=== PATIENT | male | born 1980 | race Caucasian/White ===

== ENCOUNTER 2019-07-03 20:12 | Emergency (ER) | payer BC, SELFPAY ==
--- NOTE | 2019-07-03 20:54 | RAD REPORT ---
EXAM DESCRIPTION: CT - CTHCSPWOC - 07/03/2019 8:44 pm CLINICAL HISTORY: Trauma, head and neck injury. Mental status change;Pain COMPARISON: No comparisons TECHNIQUE: Axial 5 mm thick images of the head were obtained. Axial 2 mm thick images of the cervical spine were obtained with sagittal and coronal reconstruction images generated and reviewed. All CT scans are performed using dose optimization technique as appropriate and may include automated exposure control or mA/KV adjustment according to patient size. FINDINGS: CT HEAD WITHOUT CONTRAST: No acute hemorrhage, hydrocephalus or extra-axial collection is identified.No areas of brain edema or midline shift. The paranasal sinuses and mastoids are clear.The calvarium is intact. CT CERVICAL SPINE WITHOUT CONTRAST: No fracture or subluxation.No prevertebral soft tissues swelling is identified. IMPRESSION: No acute intracranial or cervical spine findings.
[2019-07-03 21:03] LABS: Absolute Lymphocytes (CBC) 2.5 K/uL (0.7-4.9)
[2019-07-03 21:08] LABS: Basophils % 0.5 % (0-1.3); Hematocrit 45.7 % (39.6-49.0); Lymphocytes % 23.7 % (15.3-44.8); MPV 9.2 fL (7.6-11.3)
[2019-07-03 21:09] LABS: Protime INR 1.03
[2019-07-03] MEDS ORDERED: THIAMINE 200 MG/2 ML INJ ONE (21:10)
[2019-07-03] MEDS ORDERED: NA CHLORIDE 0.9% 1,000 ML ONE ×2 (21:11→23:08)
[2019-07-03] MEDS ORDERED: FAMOTIDINE 20 MG/2 ML VIAL IV ONE (21:11)
[2019-07-03] MEDS ORDERED: FOLIC ACID 5 MG/ML VIAL ONE (21:11)
[2019-07-03 21:20] LABS: Urine Blood NEGATIVE (NEG); Urine Glucose NEGATIVE (NEG); Urine Protein NEGATIVE (NEG); Urine Specific Gravity <1.005 (1.005-1.030)
--- NOTE | 2019-07-03 21:21 | RAD REPORT ---
EXAM DESCRIPTION: RAD - Chest Single View - 07/03/2019 9:12 pm CLINICAL HISTORY: CHEST PAIN Chest pain. COMPARISON: CHEST SINGLE VIEW dated 04/17/2015 FINDINGS: Portable technique limits examination quality. The lungs are grossly clear. The heart is normal in size. No displaced fractures. IMPRESSION: No acute intrathoracic process suspected.
[2019-07-03 21:22] LABS: ALT/SGPT 25 U/L (12-78); AST/SGOT 21 U/L (15-37); Albumin 4.5 g/dL (3.4-5.0); Alkaline Phosphatase 97 U/L (45-117); BUN Blood Urea Nitrogen 15 mg/dL (7-18); Bicarbonate 20 mmol/L (21-32); Bilirubin Direct 0.2 mg/dL (0-0.2); Bilirubin Total 0.6 mg/dL (0.2-1.0); Glucose Level 80 mg/dL (74-106); Magnesium 2.1 mg/dL (1.8-2.4); NT PRO-BNP 5 pg/mL (<125); Potassium 3.6 mmol/L (3.5-5.1); Protein, Total 8.1 g/dL (6.4-8.2); Sodium Level 137 mmol/L (136-145); Troponin (Emerg Dept Use Only) < 0.02 ng/mL (0.0-0.045)
[2019-07-03 21:27] LABS: Barbiturates NEGATIVE (NEGATIVE); Benzodiazepines NEGATIVE (NEGATIVE); Cocaine NEGATIVE (NEGATIVE); METHAMPHETAM NEGATIVE (NEGATIVE); Methadone NEGATIVE (NEGATIVE); Opiates NEGATIVE (NEGATIVE); Phencyclidine NEGATIVE (NEGATIVE); THC Cannibis NEGATIVE (NEGATIVE)
[2019-07-03 21:47] LABS: Blood Morphology Comment NOT SEEN (NOT SEEN); Platelet Estimate ADEQ
--- NOTE | 2019-07-03 22:05 | RAD REPORT ---
EXAM DESCRIPTION: CT - Angio Aorta For Dissection - 07/03/2019 9:50 pm CLINICAL HISTORY: Chest pain radiating to the back. COUGH COMPARISON: No comparisons TECHNIQUE: CT angiography of the aorta was performed with MIPs. All CT scans are performed using dose optimization technique as appropriate and may include automated exposure control or mA/KV adjustment according to patient size. FINDINGS: A left aortic arch is present with normal branching pattern of the great vessels.No acute aortic finding is seen such as aneurysm, penetrating ulcer or dissection. The celiac axis, SMA, MAYO and renal arteries are patent. No evidence of pulmonary embolism. Vague nodular densities are present in both lungs greatest in the upper lobes. No aggressive mass see n. The liver demonstrates no focal mass or biliary dilatation.The spleen, pancreas, adrenal glands and k idneys are within normal limits for arterial phase imaging. No bowel obstruction, free fluid or abscess.Appendectomy.No pathologic enlarged lymphadenopathy ident ified. No fracture or worrisome bone lesion seen. IMPRESSION: No acute aortic finding is demonstrated. Vague nodular densities in lungs may indicate mild pulmonary infection. Consider follow-up CT chest i n 3-6 months for surveillance purposes.
--- NOTE | 2019-07-03 22:07 | ER ---
Nurse's Notes [facility] Name: Angel Alvares Age: 38 yrs Sex: Male : 1980 Arrival Date: 07/03/2019 Time: 20:17 Bed 4 Private MD: Diagnosis: Cerebral infarction-left arm and leg weakness;Alcohol abuse with intoxication Presentation: 07/02 20:30 Chief complaint: Patient states: Reports having numbness and tingling that started ea about an hour ago, states he was jumping on the trampoline and started feeling a lot of tingling on the left arm and left leg. Pt denies injury. Coronavirus screen: Proceed with normal triage. Ebola Screen: No symptoms or risks identified at this time. Initial Sepsis Screen: Does the patient meet any 2 criteria? No. Patient's initial sepsis screen is negative. Does the patient have a suspected source of infection? No. Patient's initial sepsis screen is negative. Risk Assessment: Do you want to hurt yourself or someone else? Patient reports no desire to harm self or others. Onset of symptoms was July 03, 2019. 20:30 Method Of Arrival: Wheelchair ea 20:30 Acuity: GENA 3 ea Historical: - Home Meds: 21:36 None [Active]; ea - PMHx: 21:36 Asthma; ea - PSHx: 21:36 Appendectomy; ea - Immunization history:: Adult Immunizations up to date. - Family history:: not pertinent. - Social history:: Smoking status: unknown. Screenin:02 Abuse screen: Denies threats or abuse. Nutritional screening: No deficits noted. ea Tuberculosis screening: No symptoms or risk factors identified. Fall Risk IV access (20 points). Assessment: 20:30 General: Appears in no apparent distress. Behavior is appropriate for age, Smells of ea alcohol. Pain: Denies pain. Neuro: Level of Consciousness is awake, alert, Oriented to person, place, time, situation, Weakness arm(s) leg(s) Speech is normal, Facial droop on left, Pupils are PERRLA, Pt appears intoxicated, smells of ETOH, having a hard time following commands.. Cardiovascular: Patient's skin is warm and dry. Respiratory: Airway is patent Respiratory effort is even, unlabored, Respiratory pattern is regular, symmetrical. GI: Abdomen is non-distended. Derm: Skin is pink, warm \T\ dry. 21:20 Reassessment: Patient and/or family updated on plan of care and expected duration. Pain ea level reassessed. Pt awake, alert. Oriented x 3. Respirations even and unlabored. Chest expansions even and symmetrical. Denies pain at this time. 22:50 Reassessment: Patient and/or family updated on plan of care and expected duration. Pain ea level reassessed. Patient is alert, oriented x 3, equal unlabored respirations, skin warm/dry/pink. Patient states symptoms have improved. 07/03 00:29 Reassessment: Patient and/or family updated on plan of care and expected duration. Pain ea level reassessed. Patient is alert, oriented x 3, equal unlabored respirations, skin warm/dry/pink. [facility] at facility for transfer, report given to EMS. Pt left via stretcher per EMS, tolerating well. Vital Signs: 07/02 20:30 BP 132 / 89; Pulse 96; Resp 18; Pulse Ox 98% ; Weight 81.65 kg; Height 6 ft. (182.88 ea cm); 22:25 BP 135 / 91; Pulse 99; Resp 18; Temp 98; Pulse Ox 99% on R/A; ea 23:10 BP 120 / 78; Pulse 99; Resp 18; Pulse Ox 99% ; ea 07/03 00:10 BP 122 / 72; Pulse 97; Resp 18; Pulse Ox 99% ; ea 07/02 20:30 Body Mass Index 24.41 (81.65 kg, 182.88 cm) ea NIH Stroke Scale Scores: 07/02 20:35 NIHSS Score: 7 ea 20:42 NIHSS Score: 7 torri ED Course: 20:17 Patient arrived in ED. ds1 20:17 Girish Corona MD is Attending Physician. torri 20:30 Patient has correct armband on for positive identification. Placed in gown. Bed in low ea position. Call light in reach. Side rails up X2. care asst on. Pulse ox on. NIBP on. 20:30 Arm band placed on right wrist. Patient placed in an exam room, on a stretcher, on ea pulse oximetry. 20:44 Head C Spine Mpr Wo Con In Process Unspecified. EDMS 20:50 Wong, Jovanna, RN is Primary Nurse. ea 20:50 Inserted saline lock: 20 gauge in left antecubital area, using aseptic technique. dh4 21:12 XRAY Chest (1 view) In Process Unspecified. EDMS 21:32 Triage completed. ea 21:59 CT Aorta for Dissection In Process Unspecified. EDMS 22:[address] [facility] spoke with Kacey Saldaña. mw2 22:16 Dr. Rothman accepted pt. mw2 22:29 Kacey Saldaña called back with acceptance to [facility]. mw2 22:41 US Carotid Artery Bilateral In Process Unspecified. EDMS 22:50 CT Head Angio In Process Unspecified. EDMS 04 00:20 No provider procedures requiring assistance completed. Patient transferred, IV remains ea in place. Administered Medications: 07/02 21:08 Drug: NS 0.9% 1000 ml Route: IV; Rate: 1 bolus; Site: left antecubital; ea 21:08 Drug: Thiamine 100 mg Route: IV; Rate: bolus; Site: left antecubital; ea 21:08 Drug: foLIC Acid 1 mg Route: IVPB; Site: left antecubital; ea 21:08 Drug: Pepcid 20 mg Route: IVP; Site: left antecubital; ea 22:00 Follow up: Response: No adverse reaction ea 22:25 Drug: ACTIvase {Co-Signature: vc (Crystal Espinoza RN).} Route: IV Thrombolytics; Rate: ea calculated rate; Infused Over: 60 mins; 23:30 Follow up: Response: No adverse reaction ea 23:05 Drug: NS 0.9% 1000 ml Route: IV; Rate: 1 bolus; Site: right forearm; ea 23:05 Drug: Mucomyst - Acetylcysteine 600 mg Route: PO; ea 07/03 00:00 Follow up: Response: No adverse reaction ea 07/02 23:46 Drug: NS 0.9% 1000 ml Route: IV; Rate: 125 ml/hr; Site: right forearm; ea Outcome: 22:06 ER care complete, transfer ordered by . torri 22:15 Instructed on the need for transfer. ea 07/03 00:20 Transferred by ground EMS to [facility], Transfer form completed. ea 00:29 Condition: stable ea 00:34 Patient left the ED. vc NIH Stroke Scale - NIH Stroke Score Date: 07/03/2019 Time: 20:35 Total Score = 7 1a. Level of Consciousness (LOC) - 0(Alert) 1b. Level of Consciousness (LOC) (Year \T\ Age) - 0(Both) 1c. LOC Commands (Open \T\ Closes Eyes/Business Systems Advisor) - 0(Both) 2. Best Gaze (Lateral Gaze Paresis) - 0(Normal) 3. Visual Field Loss - 0(No visual loss) 4. Facial Palsy - 1(Minor Paralysis) 5a. Left Arm: Motor (10-second hold) - 2(Drift, some effort against gravity) 5b. Right Arm: Motor (10-second hold) - 0(No drift) 6a. Left Leg: Motor (5-second hold - always test supine) - 2(Drift, some effort against gravity) 6b. Right Leg: Motor (5-second hold - always test supine) - 0(No drift) 7. Limb Ataxia (finger/nose \T\ heel/comer - test with eyes open) - 1(Present in one limb) 8. Sensory Loss (pinprick arms/legs/face) - 1(Mild to moderate loss) 9. Best Language: Aphasia (description/naming/reading) - 0(No aphasia) 10. Dysarthria (speech clarity - read or repeat words) - 0(Normal) 11. Extinction and Inattention (visual/tactile/auditory/spatial/personal) - 0(No abnormality) Initials: [facility] Stroke Scale - NIH Stroke Score Date: 07/03/2019 Time: 20:42 Total Score = 7 1a. Level of Consciousness (LOC) - 0(Alert) 1b. Level of Consciousness (LOC) (Year \T\ Age) - 0(Both) 1c. LOC Commands (Open \T\ Closes Eyes/Business Systems Advisor) - 0(Both) 2. Best Gaze (Lateral Gaze Paresis) - 0(Normal) 3. Visual Field Loss - 0(No visual loss) 4. Facial Palsy - 0(Normal) 5a. Left Arm: Motor (10-second hold) - 3(No effort against gravity) 5b. Right Arm: Motor (10-second hold) - 0(No drift) 6a. Left Leg: Motor (5-second hold - always test supine) - 3(No effort against gravity) 6b. Right Leg: Motor (5-second hold - always test supine) - 0(No drift) 7. Limb Ataxia (finger/nose \T\ heel/comer - test with eyes open) - 0(Absent) 8. Sensory Loss (pinprick arms/legs/face) - 1(Mild to moderate loss) 9. Best Language: Aphasia (description/naming/reading) - 0(No aphasia) 10. Dysarthria (speech clarity - read or repeat words) - 0(Normal) 11. Extinction and Inattention (visual/tactile/auditory/spatial/personal) - 0(No abnormality) Initials: torri Signatures: Dispatcher [employer] EDKS Girish Corona MD MD cha Sanford, Demi ds1 Jovanna Wong RN RN ea [place]brook, MyKena mw2 Crystal Espinoza RN RN vc Huhn, Donald [facility] Crystal Espinoza RN, vc Corrections: (The following items were deleted from the chart) 07/02 22:48 22:08 initiated transfer at [facility] spoke with Kacey Saldaña mw2 mw2
--- NOTE | 2019-07-03 22:07 | EDPHYS ---
Physician Documentation [facility] Name: Angel Alvares Age: 38 yrs Sex: Male : 1980 Arrival Date: 07/03/2019 Time: 20:17 Bed 4 Private MD: Girish Herring HPI: 07/02 20:42 This 38 yrs old Male presents to ER via Unassigned with complaints of L Side torri Numbness, Abdominal Pain. 20:42 The patient presents with abdominal pain. Onset: The symptoms/episode began/occurred 1 torri hour(s) ago. The patient's problem is reported as paresthesias, in left upper extremity, in left lower extremity, weakness, in the left upper extremity, in the left lower extremity. Onset: The symptoms/episode began/occurred 1 hour(s) ago. Duration: The episode is continuous. The symptoms are alleviated by nothing. The symptoms are aggravated by nothing. . Historical: - Home Meds: 21:36 None [Active]; ea - PMHx: 21:36 Asthma; ea - PSHx: 21:36 Appendectomy; ea - Immunization history:: Adult Immunizations up to date. - Family history:: not pertinent. - Social history:: Smoking status: unknown. ROS: 20:42 Constitutional: Negative for fever, chills, and weight loss, Eyes: Negative for injury, torri pain, redness, and discharge, ENT: Negative for injury, pain, and discharge, Neck: Negative for injury, pain, and swelling, Cardiovascular: Negative for chest pain, palpitations, and edema, Respiratory: Negative for shortness of breath, cough, wheezing, and pleuritic chest pain, Back: Negative for injury and pain, : Negative for injury, bleeding, discharge, and swelling, MS/Extremity: Negative for injury and deformity, Skin: Negative for injury, rash, and discoloration, Psych: Negative for depression, anxiety, suicide ideation, homicidal ideation, and hallucinations, Allergy/Immunology: Negative for hives, rash, and allergies, Endocrine: Negative for neck swelling, polydipsia, polyuria, polyphagia, and marked weight changes, Hematologic/Lymphatic: Negative for swollen nodes, abnormal bleeding, and unusual bruising. 20:42 Abdomen/GI: Positive for abdominal pain. 20:42 Neuro: Positive for numbness, weakness, of the left arm and left leg. Exam: 20:42 Constitutional: This is a well developed, well nourished patient who is awake, alert, torri and in no acute distress. Head/Face: Normocephalic, atraumatic. Eyes: Pupils equal round and reactive to light, extra-ocular motions intact. Lids and lashes normal. Conjunctiva and sclera are non-icteric and not injected. Cornea within normal limits. Periorbital areas with no swelling, redness, or edema. ENT: Nares patent. No nasal discharge, no septal abnormalities noted. Tympanic membranes are normal and external auditory canals are clear. Oropharynx with no redness, swelling, or masses, exudates, or evidence of obstruction, uvula midline. Mucous membranes moist. Neck: Trachea midline, no thyromegaly or masses palpated, and no cervical lymphadenopathy. Supple, full range of motion without nuchal rigidity, or vertebral point tenderness. No Meningismus. Chest/axilla: Normal chest wall appearance and motion. Nontender with no deformity. No lesions are appreciated. Cardiovascular: Regular rate and rhythm with a normal S1 and S2. No gallops, murmurs, or rubs. Normal PMI, no JVD. No pulse deficits. Respiratory: Lungs have equal breath sounds bilaterally, clear to auscultation and percussion. No rales, rhonchi or wheezes noted. No increased work of breathing, no retractions or nasal flaring. Abdomen/GI: Soft, non-tender, with normal bowel sounds. No distension or tympany. No guarding or rebound. No evidence of tenderness throughout. Back: No spinal tenderness. No costovertebral tenderness. Full range of motion. Male : Normal genitalia with no discharge or lesions. Skin: Warm, dry with normal turgor. Normal color with no rashes, no lesions, and no evidence of cellulitis. Psych: Awake, alert, with orientation to person, place and time. Behavior, mood, and affect are within normal limits. 20:42 Musculoskeletal/extremity: Circulation is intact in all extremities. the left arm and left leg numbness, Compartment Syndrome exam of affected extremity: is normal. DVT Exam: No signs of deep vein thrombosis. no pain, no swelling, no tenderness, negative Homans' sign noted on exam, no appreciated bluish discoloration, no erythema, no increased warmth. 22:02 Radiologist reports: neg. torri Vital Signs: 20:30 BP 132 / 89; Pulse 96; Resp 18; Pulse Ox 98% ; Weight 81.65 kg; Height 6 ft. (182.88 ea cm); 22:25 BP 135 / 91; Pulse 99; Resp 18; Temp 98; Pulse Ox 99% on R/A; ea 23:10 BP 120 / 78; Pulse 99; Resp 18; Pulse Ox 99% ; ea 07/03 00:10 BP 122 / 72; Pulse 97; Resp 18; Pulse Ox 99% ; ea 07/02 20:30 Body Mass Index 24.41 (81.65 kg, 182.88 cm) ea NIH Stroke Scale Scores: 07/02 20:35 NIHSS Score: 7 ea 20:42 NIHSS Score: 7 torri MDM: 20:37 Patient medically screened. [facility] 20:46 Data reviewed: vital signs, nurses notes, lab test result(s), EKG, radiologic studies, [facility] CT scan, plain films. 07/02 20:32 Order name: Basic Metabolic Panel [facility] 07/02 20:32 Order name: CBC with Diff; Complete Time: 22:01 [facility] 07/02 20:32 Order name: LFT's; Complete Time: 22: [facility] 07/02 20:32 Order name: Magnesium; Complete Time: 22: [facility] 07/02 20:32 Order name: NT PRO-BNP; Complete Time: 22: [facility] 07/02 20:32 Order name: PT-INR; Complete Time: 21:26 [facility] 07/02 20:32 Order name: Troponin (emerg Dept Use Only); Complete Time: 22: [facility] 07/02 20:32 Order name: Acetaminophen; Complete Time: 22:01 [facility] 07/02 20:32 Order name: ETOH Level; Complete Time: 22:01 [facility] 07/02 20:32 Order name: Ptt, Activated; Complete Time: 21:26 [facility] 07/02 20:32 Order name: Salicylate; Complete Time: 22:01 [facility] 07/02 20:32 Order name: Urine Drug Screen; Complete Time: 22:01 [facility] 07/02 20:32 Order name: Basic Metabolic Panel; Complete Time: 22:01 EDMS 07/02 21:18 Order name: Urine Dipstick--Ancillary (enter results); Complete Time: 22:01 mw2 04/10 20:32 Order name: XRAY Chest (1 view); Complete Time: 22:01 [facility] 07/02 20:36 Order name: CT Aorta for Dissection; Complete Time: 22:16 [facility] 07/02 20:36 Order name: US Carotid Artery Bilateral [facility] 07/02 20:44 Order name: Head C Spine Mpr Wo Con; Complete Time: 21:26 EDFL 07/02 21:59 Order name: Manual Differential; Complete Time: 22:01 [facility] 07/02 22:22 Order name: CT Head [facility] 07/02 20:32 Order name: EKG; Complete Time: 20:33 [facility] 07/02 20:32 Order name: Cardiac monitoring; Complete Time: 21:14 [facility] 07/02 20:32 Order name: EKG - Nurse/Tech; Complete Time: 21:14 [facility] 07/02 20:32 Order name: IV Saline Lock; Complete Time: 21:14 [facility] 07/02 20:32 Order name: Labs collected and sent; Complete Time: 21:14 [facility] 07/02 20:32 Order name: O2 Per Protocol; Complete Time: 21:14 [facility] 07/02 20:32 Order name: O2 Sat Monitoring; Complete Time: 21:36 [facility] 07/02 20:32 Order name: Urine Dipstick-Ancillary (obtain specimen); Complete Time: 21:13 [facility] Administered Medications: 21:08 Drug: NS 0.9% 1000 ml Route: IV; Rate: 1 bolus; Site: left antecubital; ea 21:08 Drug: Thiamine 100 mg Route: IV; Rate: bolus; Site: left antecubital; ea 21:08 Drug: foLIC Acid 1 mg Route: IVPB; Site: left antecubital; ea 21:08 Drug: Pepcid 20 mg Route: IVP; Site: left antecubital; ea 22:00 Follow up: Response: No adverse reaction ea 22:25 Drug: ACTIvase {Co-Signature: vc (Crystal Espinoza RN).} Route: IV Thrombolytics; Rate: ea calculated rate; Infused Over: 60 mins; 23:30 Follow up: Response: No adverse reaction ea 23:05 Drug: NS 0.9% 1000 ml Route: IV; Rate: 1 bolus; Site: right forearm; ea 23:05 Drug: Mucomyst - Acetylcysteine 600 mg Route: PO; ea 07/03 00:00 Follow up: Response: No adverse reaction 07/02 23:46 Drug: NS 0.9% 1000 ml Route: IV; Rate: 125 ml/hr; Site: right forearm; ea Disposition: 07/03/19 22:[address] [facility]. Diagnosis are Cerebral infarction - left arm and leg weakness, Alcohol abuse with intoxication. - Reason for transfer: Higher level of care. - Accepting physician is to [facility], stroke team. - Condition is Fair. - Problem is new. - Symptoms have improved. NIH Stroke Scale - NIH Stroke Score Date: 07/03/2019 Time: 20:35 Total Score = 7 1a. Level of Consciousness (LOC) - 0(Alert) 1b. Level of Consciousness (LOC) (Year \T\ Age) - 0(Both) 1c. LOC Commands (Open \T\ Closes Eyes/Meat Inspector) - 0(Both) 2. Best Gaze (Lateral Gaze Paresis) - 0(Normal) 3. Visual Field Loss - 0(No visual loss) 4. Facial Palsy - 1(Minor Paralysis) 5a. Left Arm: Motor (10-second hold) - 2(Drift, some effort against gravity) 5b. Right Arm: Motor (10-second hold) - 0(No drift) 6a. Left Leg: Motor (5-second hold - always test supine) - 2(Drift, some effort against gravity) 6b. Right Leg: Motor (5-second hold - always test supine) - 0(No drift) 7. Limb Ataxia (finger/nose \T\ heel/comer - test with eyes open) - 1(Present in one limb) 8. Sensory Loss (pinprick arms/legs/face) - 1(Mild to moderate loss) 9. Best Language: Aphasia (description/naming/reading) - 0(No aphasia) 10. Dysarthria (speech clarity - read or repeat words) - 0(Normal) 11. Extinction and Inattention (visual/tactile/auditory/spatial/personal) - 0(No abnormality) Initials: jenaro NIH Stroke Scale - NIH Stroke Score Date: 07/03/2019 Time: 20:42 Total Score = 7 1a. Level of Consciousness (LOC) - 0(Alert) 1b. Level of Consciousness (LOC) (Year \T\ Age) - 0(Both) 1c. LOC Commands (Open \T\ Closes Eyes/Meat Inspector) - 0(Both) 2. Best Gaze (Lateral Gaze Paresis) - 0(Normal) 3. Visual Field Loss - 0(No visual loss) 4. Facial Palsy - 0(Normal) 5a. Left Arm: Motor (10-second hold) - 3(No effort against gravity) 5b. Right Arm: Motor (10-second hold) - 0(No drift) 6a. Left Leg: Motor (5-second hold - always test supine) - 3(No effort against gravity) 6b. Right Leg: Motor (5-second hold - always test supine) - 0(No drift) 7. Limb Ataxia (finger/nose \T\ heel/comer - test with eyes open) - 0(Absent) 8. Sensory Loss (pinprick arms/legs/face) - 1(Mild to moderate loss) 9. Best Language: Aphasia (description/naming/reading) - 0(No aphasia) 10. Dysarthria (speech clarity - read or repeat words) - 0(Normal) 11. Extinction and Inattention (visual/tactile/auditory/spatial/personal) - 0(No abnormality) Initials: [facility] Signatures: Dispatcher [employer] EDMS Girish Corona MD MD cha Antunez, Elena, RN RN ea Calcote, Vanessa, RN RN vc Vanessa Calcote RN vc Corrections: (The following items were deleted from the chart) 20:44 20:33 CT-STROKE BRAIN W/O CONTRAST+CT.RAD.BRZ ordered. EDFL EDFL 20:44 20:37 C Spine Wo Con+CT.RAD.BRZ ordered. EDFL EDFL 07/03 00:34 07/02 22:06 07/03/2019 22:06 Transfer ordered to [facility]. Diagnosis is Cerebral infarction - left arm and leg weakness; Alcohol abuse with intoxication. Reason for transfer: Higher level of care. Accepting physician is to [facility], stroke team. Condition is Fair. Problem is new. Symptoms have improved. torri
[2019-07-03] MEDS ORDERED: ALTEPLASE 100 ML IV ONE (22:12)
[2019-07-03] MEDS ORDERED: NA CHLORIDE 0.9% 100 ML IV ONE (22:41)
[2019-07-03] MEDS ORDERED: ACETYLCYST 6,000 MG/30 ML VIAL ONE (23:08)
[2019-07-04 00:53] VITALS: BP 132/89; O2SAT 98
--- NOTE | 2019-07-04 07:59 | EKG ---
Test Date: 2019-07-03 Test Time: 20:52:35 Vessel Ordinary Seaman: LIDIA MEASUREMENT RESULTS: Intervals: Rate: 94 ME: 196 QRSD: 112 QT: 378 QTc: 472 [place]aden: P: 65 ME: 196 QRS: 132 T: 57 INTERPRETIVE STATEMENTS: Normal sinus rhythm Right axis deviation Abnormal ECG Compared to ECG 04/17/2015 21:08:15 No significant changes Electronically Signed On 07-04-19 07:58:34 CDT by [place]
--- NOTE | 2019-07-04 10:42 | RAD REPORT ---
EXAM DESCRIPTION: CT - Head angio - 07/04/2019 4:25 am CLINICAL HISTORY: WEAKNESS COMPARISON: None Available. TECHNIQUE: Multiple helical axial tomographic images were obtained of the head following administrat ion of intravenous contrast per angiographic protocol. Coronal, sagittal, and MIP reformatted images were obtained. This exam was performed according to our departmental dose-optimization program, which includes automated exposure control, adjustment of the mA and/or kV according to patient size and/or use of iterative reconstruction technique. FINDINGS: Intracranial segments of the bilateral internal carotid arteries appear patent without sig nificant stenosis or occlusion. Bilateral anterior and middle cerebral arteries appear patent without significant stenosis or occlusion. Intracranial segments of the bilateral vertebral arteries, basila r artery, and posterior cerebral arteries appear patent without significant stenosis or occlusion. Ri ght vertebral artery appears to end as the PICA. No evidence of intracranial aneurysm. There is no acute intracranial hemorrhage. No mass. No midline shift. No ventriculomegaly. Addison-white matter differentiation is maintained. Mild paranasal sinus mucosal thickening is present. Mastoid air cells and middle ear spaces are clear . Orbits and orbital contents are unremarkable. Osseous structures are unremarkable. Surrounding soft tissues are unremarkable. IMPRESSION: No evidence of significant intracranial arterial stenosis or occlusion. Electronically signed by: Angel Sanitago MD 07/03/2019 11:19 PM CDT Due to temporary technical issues with the PACS/Fluency reporting system, reports are being signed by the in house radiologist as a courtesy to ensure prompt reporting. The interpreting radiologist is f ully responsible for the content of the report.
--- NOTE | 2019-07-04 10:50 | RAD REPORT ---
EXAM DESCRIPTION: US - CP - 07/03/2019 10:40 pm CLINICAL HISTORY: 38 years Male Declining state;Confused;Weakness COMPARISON: None TECHNIQUE: Real-time and Doppler sonography of the carotid arteries was performed bilaterally. FINDINGS: No significant plaque formation bilaterally. Doppler spectrum analysis was performed which revealed peak systolic velocity ratios of 1.1 on the ri ght and 1.2 on the left. Antegrade flow is seen involving the vertebral arteries bilaterally. Velocit y elevation proximal internal carotid arteries bilaterally. IMPRESSION: No significant plaque formation bilaterally. No hemodynamically significant or greater than 50% narrowing involving the carotid arteries bilateral ly. Electronically signed by: Nancy aBteman MD 07/03/2019 11:41 PM CDT Due to temporary technical issues with the PACS/Fluency reporting system, reports are being signed by the in house radiologist as a courtesy to ensure prompt reporting. The interpreting radiologist is f ully responsible for the content of the report.
== END 2019-07-04 00:34 | disposition short-term general hospital (02) ==
LOC: ER 20:12
DX: I63.9 Cerebral infarction, unspecified (principal); G81.94 Hemiplegia, unspecified affecting left nondominant side; R29.707 NIHSS score 7; F10.129 Alcohol abuse with intoxication, unspecified; Y90.7 Blood alcohol level of 200-239 mg/100 ml; R94.31 Abnormal electrocardiogram [ECG] [EKG]; R91.1 Solitary pulmonary nodule
CPT/HCPCS: 36415; 70450; 70496; 71045; 71275; 72125; 74175; 80048; 80076; 80307; 80320; 80329; 81003; 83735; 83880; 84484; 85025; 85610; 85730; 92977; 93005; 93880; 96374; 96375; 99285; J2997; J3411; J7030; Q9967

== ENCOUNTER 2023-12-23 16:10 | Inpatient (IN) | payer SELFPAY ==
--- OUTSIDE RECORDS SUMMARY | 2023-12-23 16:13 | XMS REPORT | Clinical Summary ---
Author Name Unknown Organization [facility] Address [address] [place] [address] Care Team Providers Care Accounting Methods Analyst Name Role Phone Kia Hollingsworth APRN Primary Care Provider [phone] Allergies No known active allergies Medications Medication Sig Dispensed Refills Start Date End Date Status albuterol (VENTOLIN HFA,PROAIR HFA) 90 mcg/puff inhaler 08/30/2022 Active testosterone cypionate 200 mg/mL kit 0.5 ml Intramuscular every week for 90 days 09/12/2021 Active Active Problems No known active problems Encounters Date Type Department Care Team Description 06/14/2023 1:40 PM CDT Clinical Support Undiagnosed Breast Clinic [address] [place] [address], 5th [place] [address] Kia Hollingsworth APRN 06/14/2023 10:18 AM CDT - 06/14/2023 11:59 PM CDT Hospital Encounter Breast Imaging [address] [facility], 5th [place] [address] Jared Nunez APRN Unspecified lump in unspecified breast Discharge Disposition: Home 06/14/2023 8:52 AM CDT - 06/14/2023 10:17 AM CDT Hospital Encounter Breast Imaging [address] [facility], 5th [place] [address] Jared Nunez APRN Unspecified lump in unspecified breast Discharge Disposition: Home 06/14/2023 8:00 AM CDT Office Visit Undiagnosed Breast Clinic [address] [facility], 5th [place] [address] Kia Hollingsworth APRN Unspecified lump in unspecified breast (Primary Dx); Mastodynia; Rash and other nonspecific skin eruption 06/14/2023 Travel 06/12/2023 2:00 PM CDT NPR [facility] PATIENT ACCESS Kia Hollingsworth APRN 06/07/2023 Orders Only Undiagnosed Breast Clinic [address] [facility], 5th [place] [address] NunezJared smith Bouchra Hernandez, [employer] Unspecified lump in unspecified breast (Primary Dx) 05/30/2023 Travel after 12/23/2022 Immunizations Name Administration Dates Next Due Pneumococcal Polysaccharide PPSV23 10/04/2005 Tdap 10/04/2005 Surgical History Surgery Date Site/Laterality Comments APPENDECTOMY 03/25/1993 Medical History Medical History Date Comments Hypertension 05/23/22 Was high Asthma 1980 Chronic Sexual dysfunction 03/25/2021 Family History Medical History Relation Name Comments Melanoma Father -Unknown cancer Paternal Grandmother Relation Name Status Comments Father Alive Paternal Grandmother Social History Tobacco Use Types Packs/Day Years Used Date Smoking Tobacco: Never Passive Smoke Exposure: Never Smokeless Tobacco: Current Snuff Tobacco Cessation:Ready to Q uit: No; Counseling Given: No Alcohol Use Standard Drinks/Week Comments Yes 24 (1 standard drink = 0.6 oz pu re alcohol) Sex and Gender Information Value Date Recorded Sex Assigned at Not on file Gender Identity Not on file Sexual Orientation Not on file Job Start Date Occupation Industry Not on file Not on file Not on file Obstetrics History Last Filed Vital Signs Vital Sign Reading Time Taken Comments Blood Pressure 130/89 06/14/2023 8:19 AM CDT Pulse 108 06/14/2023 8:19 AM CDT Temperature - - Respiratory Rate 16 06/14/2023 8:19 AM CDT Oxygen Saturation - - Inhaled Oxygen Concentration - - Weight 85.4 kg (188 lb 4.4 oz) 06/14/2023 8:19 A M CDT Height 180 cm (5' 10.87") 06/14/2023 8:19 AM CDT Body Mass Index 26.36 06/14/2023 8:19 AM CDT Plan of Treatment Health Maintenance Due Date Last Done Comments COVID-19 Vaccine (2023-2 5 season) 2023 Influenza Vaccine (#1) 2023 Pneumococcal Vaccine: Pediat rics (0 to 5 Years) and At-Risk Patients (6 to 64 Years) Aged Out 10/04/2005 No longer eligi ble based on patient's age to complete this topic Procedures Procedure Name Priority Date/Time Associated Diagnosis Comments US BREAST COMPLETE BILATERAL Routine 06/14/2023 11:07 AM CDT Unspecified lump in unspecified breast MAMMO DIGITAL DIAGNOSTIC BILATERAL W PEDRO Routine 06/14/2023 10:17 AM CDT Unspecified lump in unspecified breast after 12/23/2022 Results * US Breast Complete Bilateral (06/14/2023 11:07 AM CDT) Anatomical Region Laterality Modality Breast Bilateral Ultrasound 06/14/2023 11:3 7 AM CDT Impressions 06/14/2023 11:40 AM CDT Bilateral gynecomastia. ACR BI-RADS Category: 2. Benign. Narrative 06/14/2023 11:40 AM CDT FULL RESULT: Examination: US BREAST COMPLETE BILATERAL 06/14/2023 11:07 AM Clinical History: 42-year-old male with bilateral palpable abnormalities. Indication: Palpable abnormality Comparison: Mammogram performed earlier in the day. Technique: Real-time sonographic imaging of both breasts (including all 4 quadrants and retroareolar region) was performed. Images were obtained in multiple scanning planes. Findings: Right breast: There is no sonographic correlate for the palpable abnormality at 11 - 12 o'clock position. The 2nd palpable abnormality in the retroareolar region correlates with the gynecomastia. Left breast: The palpable abnormality in the retroareolar region correlates with gynecomastia. Reminder of the left breast is unremarkable. Procedure Note Claudette Leiva MD - 06/14/2023 FULL RESULT: Examination: US BREAST COMPLETE BILATERAL 06/14/2023 11:07 AM Clinical History: 42-year-old male with bilateral palpableabnormalities. Indication: Palpable abnormality Comparison: Mammogram performed earlier in the day. Technique: Real-time sonographic imaging of both breasts (including all 4quadrants and retroareolar region) was performed. Images were obtained inmultiple scanning planes. Findings: Right breast: There is no sonographic correlate for the palpableabnormality at 11 - 12 o'clock position. The 2nd palpable abnormality inthe retroareolar region correlates with the gynecomastia. Left breast: The palpable abnormality in the retroareolar regioncorrelates with gynecomastia. Reminder of the left breast isunremarkable. IMPRESSION: Bilateral gynecomastia. ACR BI-RADS Category: 2. Benign. Jared Bouchra Hernandez Mayra PAREDES IMG US ORDERA BLES * (ABNORMAL) Mammography Digital Diagnostic Bilateral with Pedro (06/14/2023 10:17 AM CDT) Anatomical Region Laterality Modality Breast Bilateral Mammography 06/14/2023 11:1 1 AM CDT Impressions 06/14/2023 11:11 AM CDT 1: Palpable finding in the right breast upper hemisphere at 12 o'clock located 3 centimeters from the nipple requires additional imaging evaluation. An ultrasound exam is recommended. 2: Focal asymmetry in the retroareolar region of the right breast requires additional imaging evaluation. An ultrasound exam is recommended. 3: Focal asymmetry in the retroareolar region of the left breast requires additional imaging evaluation. An ultrasound exam is recommended. BI-RADS Category 0: Incomplete: Needs Additional Imaging Evaluation Narrative 06/14/2023 11:11 AM CDT CLINICAL INDICATION: Patient is a 42 year old male and is seen for breast lump MAMMO DIGITAL DIAGNOSTIC BILATERAL W PEDRO Digital Mammogram evaluated with Computer Aided Detection (CAD). COMPARISON: This is a baseline study. FINDINGS: The breasts are almost entirely fatty. 1: There is a palpable finding in the right breast upper hemisphere at 12 o'clock located 3 centimeters from the nipple. There is no mammographic correlate for the palpable abnormality. 2: There is a focal asymmetry with associated palpable finding in the retroareolar region of the right breast. This is likely related to gynecomastia. 3: There is a focal asymmetry with associated palpable finding in the retroareolar region of the left breast. This is likely related to gynecomastia. Tomosynthesis performed in CC and MLO projections. Procedure Note Claudette Leiva MD - 06/14/2023 CLINICAL INDICATION: Patient is a 42 year old male and is seen for breast lump MAMMO DIGITAL DIAGNOSTIC BILATERAL W PEDRO Digital Mammogram evaluated with Computer Aided Detection (CAD). COMPARISON: This is a baseline study. FINDINGS: The breasts are almost entirely fatty. 1: There is a palpable finding in the right breast upper hemisphere at12 o'clock located 3 centimeters from the nipple. There is no mammographic correlate for the palpable abnormality. 2: There is a focal asymmetry with associated palpable finding in the retroareolar region of the right breast. This is likely related togynecomastia. 3: There is a focal asymmetry with associated palpable finding in the retroareolar region of the left breast. This is likely related togynecomastia. Tomosynthesis performed in CC and MLO projections. IMPRESSION: 1: Palpable finding in the right breast upper hemisphere at 12 o'clocklocated 3 centimeters from the nipple requires additional imaging evaluation. An ultrasound exam is recommended. 2: Focal asymmetry in the retroareolar region of the right breastrequires additional imaging evaluation. An ultrasound exam is recommended. 3: Focal asymmetry in the retroareolar region of the left breastrequires additional imaging evaluation. An ultrasound exam is recommended. BI-RADS Category 0: Incomplete: Needs Additional Imaging Evaluation Coleman Bouchra Hernandez Nunez [employer] IMG MAMMOGRAP HY ORDERABLES after 12/23/2022 Care Teams Accounting Methods Analyst Relationship Specialty Start Date End Date Kia Hollingsworth, [employer] [address] [place] [address] [email or web address] PCP - General Cancer Prevention 06/05/23
[2023-12-23 17:13] LABS: Absolute Basophils 0.1 K/uL (0-0.5); Absolute Eosinophils 0.2 K/uL (0-0.5); Absolute Lymphocytes (CBC) 1.1 K/uL (0.7-4.9); Absolute Monocytes 0.3 K/uL (0.1-1.3); Absolute Neutrophil 6.3 K/uL (1.8-8.0); Basophils % 0.8 % (0-1.3); Eosinophils % 2.7 % (0-4.4); Hemoglobin 14.7 g/dL (13.6-17.9); Lymphocytes % 14.4 % (15.3-44.8); MCH 31.5 pg (27.0-35.0); MCHC 32.6 g/dL (32.0-36.0); MCV 96.7 fL (80-100); MPV 9.3 fL (7.6-11.3); Monocytes % 3.5 % (3.3-12.3); Neutrophils % 78.6 % (41.7-73.7); Nucleated Red Blood Cells % 0.1 % (0-0); Platelets 303 thou/uL (152-406); RBC Red Blood Cell Count 4.65 M/uL (4.33-5.43); Red Cell Distribution Width 14.7 % (12.1-15.2)
[2023-12-23] MEDS ORDERED: METOPROLOL TARTRATE 5 MG/5 ML INJ IV ONE (17:16)
[2023-12-23] MEDS ORDERED: NA CHLORIDE 0.9% 1,000 ML ONE (17:17)
[2023-12-23 17:19] LABS: D-Dimer 1.603 FEUug/mL (0-0.500); PT Prothrombin Time 18.4 SECONDS (9.4-12.5); Protime INR 1.67
[2023-12-23 17:35] LABS: Albumin 2.7 g/dL (3.4-5.0); Albumin/Globulin Ratio 0.8 (1.1-1.8); Anion Gap 9.1 mEq/L (5.0-15.0); Bilirubin Direct 0.3 mg/dL (0-0.2); Bilirubin Indirect, Calculated 0.4 mg/dL (0.2-0.8); Bilirubin Total 0.7 mg/dL (0.2-1.0); Globulin 3.3 g/dL (2.3-3.5); Magnesium 1.8 mg/dL (1.6-2.4); Potassium 4.1 mEq/L (3.5-5.1); Troponin High Sensitivity 22.3 pg/mL (<58.9)
[2023-12-23] MEDS ORDERED: IPRATROPIUM BROM 0.5MG/2.5ML ONE (18:15)
[2023-12-23] MEDS ORDERED: METHYLPREDNISOLONE 125 MG INJ ONE (18:15)
[2023-12-23] MEDS ORDERED: ALBUTEROL 2.5 MG/3 ML NEB SOL ONE (18:15)
[2023-12-23] MEDS ORDERED: METOPROLOL TAR 25 MG TAB ONE (18:15)
--- NOTE | 2023-12-23 18:16 | RAD REPORT ---
EXAMINATION: US bilateral LOWER EXTREMITY VENOUS DOPPLER CLINICAL INDICATION: Leg pain TECHNIQUE: Sonographic evaluation of the veins of the lower extremity bilaterally formed.Grayscale, c olor and spectral analysis performed on all vessels COMPARISON: No prior exam. FINDINGS: The common femoral, superficial femoral, greater saphenous, popliteal and posterior tibial veins bila terally are compressible and demonstrate augmentation. Doppler demonstrates good flow. IMPRESSION: No evidence of deep venous thrombosis involving either lower extremity
--- NOTE | 2023-12-23 18:55 | RAD REPORT ---
EXAM: Chest For Pe Angio CLINICAL HISTORY: Chest pain COMPARISON: None TECHNIQUE: Thin axial CT images of the chest were obtained following administration of 100 mL Isovue 370 IV contrast. Multiplanar reconstructions, and 3-D maximum intensity projection reconstructions were generated and reviewed. Exam utilizes a protocol for optimal evaluation of pulmonary arterial tree. All CT scans are performed using dose optimization technique as appropriate and may include automated exposure control or mA/KV adjustment according to patient size. FINDINGS: A pulmonary embolus is not seen No thoracic aortic aneurysm. [id number] right and small left pleural effusions. A pericardial effusion not noted. Cardiomegaly Mild bilateral groundglass opacities within the lungs IMPRESSION: Negative for pulmonary embolism Mild bilateral groundglass opacities within the lungs may indicate mild pulmonary edema
--- NOTE | 2023-12-23 18:56 | RAD REPORT ---
Procedure: Chest Single View History: sob Comparison: 2019 Mild bilateral pulmonary opacities No significant pleural effusion noted. The heart is moderately enlarged IMPRESSION: Mild bilateral pulmonary opacities may indicate pulmonary edema
--- NOTE | 2023-12-23 19:37 | EDPHYS ---
Physician Documentation [facility] Name: Angel Alvares Age: 43 yrs Sex: Male : 1980 Arrival Date: 12/23/2023 Time: 16:10 Bed 8 Private MD: ED Physician Nathan Maradiaga HPI: 12/22 16:50 This 43 yrs old Male presents to ER via Ambulatory with complaints of Abnormal Lab cp Results - EKG. 16:50 Patient is a 43-year-old male with past medical history significant for asthma who cp presents to the emergency department with increasing shortness of breath. Patient reports he was diagnosed with COVID about a month and a half ago and since he has had increasing shortness of breath that has been worse over the last several days. Patient was sent to the emergency department from a local clinic due to an abnormal EKG and his complaints of shortness of breath. Historical: - Allergies: 16:32 No Known Allergies; iw - PMHx: 16:32 Asthma; iw - PSHx: 16:32 Appendectomy; iw - Immunization history:: Adult Immunizations not up to date. - Infectious Disease History:: Denies. - Social history:: Smoking status: Patient denies any tobacco usage or history of. ROS: 16:50 Constitutional: Negative for body aches, chills, fever, poor PO intake, cp 16:50 Cardiovascular: Positive for chest pain, Negative for palpitations, cp 16:50 Respiratory: Positive for shortness of breath, at rest. 16:50 Eyes: Negative for injury, pain, redness, and discharge, cp 16:50 Neuro: Negative for altered mental status, dizziness, headache, syncope, weakness, 16:50 All other systems are negative, Exam: 16:50 ECG was reviewed by the Attending Physician. cp 16:55 Constitutional: The patient appears in no acute distress, alert, awake, cp non-diaphoretic, non-toxic, well developed, well nourished, uncomfortable, 16:55 Head/Face: Normocephalic, atraumatic. cp 16:55 Eyes: Periorbital structures: appear normal, Conjunctiva: normal, no exudate, no injection, Sclera: no appreciated abnormality, Lids and lashes: appear normal, bilaterally, 16:55 ENT: External ear(s): are unremarkable, Nose: is normal, Mouth: Lips: moist, Oral mucosa: moist, Posterior pharynx: is normal, airway is patent, no erythema, no exudate, 16:55 Chest/axilla: Inspection: normal, 16:55 Cardiovascular: Rate: tachycardic, Rhythm: regular, 16:55 Respiratory: the patient does not display signs of respiratory distress, Respirations: labored breathing, that is mild, Breath sounds: are clear throughout, no decreased breath sounds, no stridor, no wheezing, 16:55 Abdomen/GI: Inspection: abdomen appears normal, Palpation: abdomen is soft and non-tender, in all quadrants, 16:55 Neuro: Orientation: to person, place \T\ time. Mentation: is normal, Motor: moves all fours, strength is normal, Sensation: is normal, Vital Signs: 16:31 BP 121 / 74; Pulse 122; Resp 19; Temp 97.4; Pulse Ox 98% on R/A; iw 17:00 BP 114 / 84; Pulse 121; Resp 18; Pulse Ox 95% on R/A; db 18:38 BP 105 / 79; Pulse 100; Resp 18; Pulse Ox 100% ; db 19:10 BP 105 / 79; Pulse 103; Resp 14; Temp 97.4; Pulse Ox 100% on Nebulizer Mask; Pain 0/10; bm8 20:59 BP 104 / 66; Pulse 101; Resp 16 S; Pulse Ox 96% on R/A; lg3 19:10 Pain Scale: Adult bm8 Abbie Coma Score: 19:10 Eye Response: spontaneous(4). Motor Response: obeys commands(6). Verbal Response: bm8 oriented(5). Total: 15. MDM: 16:28 Patient medically screened. cp 18:00 Differential diagnosis: bronchitis, pneumonia asthma, chf, pulmonary embolism. cp 19:40 Data reviewed: vital signs, nurses notes, lab test result(s), EKG, radiologic studies, cp CT scan, plain films. 19:40 Management of patient was discussed with the following: Hospitalist: DR Welch will cp admit after discussion. Independent interpretation of the following test(s) in the Emergency Department EKG: See my EKG interpretation above. 19:40 Counseling: I had a detailed discussion with the patient and/or guardian regarding the cp historical points, exam findings, and any diagnostic results supporting the discharge/admit diagnosis, lab results, radiology results, the need for further work-up and treatment in the hospital. 19:40 Response to treatment: the patient's symptoms have mildly improved after treatment. 12/22 16:46 Order name: Basic Metabolic Panel; Complete Time: 17:37 12/22 17:37 Interpretation: Normal except: NA 132; GLUC 165; CRE 1.63; GFR 53. 12/22 16:46 Order name: CBC with Diff; Complete Time: 17:37 12/22 18:57 Interpretation: Reviewed. 12/22 16:46 Order name: D-Dimer; Complete Time: 17:37 12/22 16:46 Order name: LFT's; Complete Time: 17:37 12/22 18:58 Interpretation: Normal except: AST 168; ALT 420; BILID 0.3; TP 6.0; ALB 2.7; A/G 0.8. 12/22 16:46 Order name: Magnesium; Complete Time: 17:37 12/22 16:46 Order name: NT PRO-BNP; Complete Time: 17:37 12/22 16:46 Order name: PT-INR; Complete Time: 17:37 12/22 16:46 Order name: Troponin HS; Complete Time: 17:37 12/22 20:37 Order name: Urinalysis w/ reflexes [facility] 12/22 20:37 Order name: CBC with Automated Diff [facility] 12/22 20:37 Order name: CBC with Automated Diff [facility] 12/22 20:37 Order name: Comprehensive Metabolic Panel [facility] 12/22 20:37 Order name: Comprehensive Metabolic Panel [facility] 12/22 20:37 Order name: Troponin High Sensitivity [facility] 12/22 20:37 Order name: Troponin High Sensitivity [facility] 12/22 20:37 Order name: Troponin High Sensitivity [facility] 12/22 20:37 Order name: Troponin High Sensitivity [facility] 12/22 16:46 Order name: XRAY Chest (1 view); Complete Time: 18:58 cp 12/22 18:58 Interpretation: Report review. 12/22 16:46 Order name: US Extremity Venous W Compression Simone; Complete Time: 18:47 cp 12/22 18:47 Interpretation: Report reviewed. 12/22 17:44 Order name: CT Chest For PE Angio; Complete Time: 18:57 cp 12/22 16:46 Order name: EKG; Complete Time: 16:47 cp 12/22 16:46 Order name: Cardiac monitoring; Complete Time: 16:50 cp 12/22 16:46 Order name: EKG - Nurse/Tech; Complete Time: 16:50 cp 12/22 16:46 Order name: IV Saline Lock; Complete Time: 17:12 cp 12/22 16:46 Order name: Labs collected and sent; Complete Time: 17:12 cp 12/22 16:46 Order name: O2 Per Protocol; Complete Time: 16:50 cp 12/22 16:46 Order name: O2 Sat Monitoring; Complete Time: 16:50 cp EC:50 Rate is 125 beats/min. Rhythm is regular. AK interval is normal. QRS interval is cp prolonged at 106 msec. QT interval is normal. Interpreted by me. Reviewed by me. Administered Medications: 17:50 Discontinued: ns 0.9% 1000 ml IV at 1 bolus Per protocol; 1000 mL bolus cp 17:21 Drug: NS 0.9% IV 1000 ml IV at 1 bolus Per protocol; 1000 mL bolus Route: IV; Rate: 1 db bolus; Site: left antecubital; 21:23 Follow up: Response: No adverse reaction; IV Status: Completed infusion bm8 17:21 Drug: Metoprolol IVP 5 mg IVP once; Hold for SBP <100 or HR <60. Route: IVP; Site: left db antecubital; 21:23 Follow up: Response: No adverse reaction bm8 18:35 Drug: Metoprolol PO 25 mg PO once Route: PO; db 21:23 Follow up: Response: No adverse reaction bm8 18:38 Drug: DuoNeb Nebulize (2.5 mg - 0.5 mg) 3 ml Nebulizer once Route: Nebulizer; db 21:23 Follow up: Response: No adverse reaction bm8 18:45 Drug: MethylPrednisoLONE IVP 125 mg IVP once Route: IVP; Site: left antecubital; db 21:23 Follow up: Response: No adverse reaction bm8 19:51 Drug: Furosemide IVP 20 mg IVP once; give over 2 minutes Route: IVP; Site: left lg3 antecubital; 21:22 Follow up: Response: No adverse reaction bm8 Disposition Summary: 12/23/23 19:37 Hospitalization Ordered Notes: Hospitalization Status: Inpatient Admission cp Provider: Pierre Welch cp Location: Telemetry/MedSurg (Inpatient) cp Condition: Fair cp Problem: new cp Symptoms: have improved cp Bed/Room Type: Standard cp Room Assignment: 229(12/23/23 20:51) rv1 Diagnosis - Unspecified combined systolic (congestive) and diastolic (congestive) heart failure cp - Acute pulmonary edema cp - Dyspnea cp Forms: - Medication Reconciliation Form cp - SBAR form cp - Leadership Thank You Letter cp Addendum: 12/25/2023 17:07 Co-signature as Attending Physician, Nathan Maradiaga MD I reviewed the patient's care r n provided by the Advanced Practice Provider and agree with the diagnosis and treatment plan. Signatures: Dispatcher [employer] Jasmin Gamez, RN Nathan Gonzalez MD MD rn Page, Corey, Juanita Carranza cp, RN RN lg3 Madisyn Chin RN RN db Villegas, Rebecca rv1 Gopal Matias RN bm8 Corrections: (The following items were deleted from the chart) 12/22 20:51 19:37 cp rv1
--- NOTE | 2023-12-23 19:37 | ER ---
Nurse's Notes [facility] Name: Angel Alvares Age: 43 yrs Sex: Male : 1980 Arrival Date: 12/23/2023 Time: 16:10 Bed 8 Private MD: Diagnosis: Unspecified combined systolic (congestive) and diastolic (congestive) heart failure;Acute pulmonary edema;Dyspnea Presentation: 12/22 16:31 Chief complaint: Patient states: was sent from [facility] for tachycardia, was being iw seen there for SOB and cough, was positive for COVID a month and half ago. Coronavirus screen: Client presents with at least one sign or symptom that may indicate coronavirus-19. Ebola Screen: No symptoms or risks identified at this time. Initial Sepsis Screen: Does the patient meet any 2 criteria? HR > 90 bpm. Does the patient have a suspected source of infection? No. Patient's initial sepsis screen is negative. Risk Assessment: Do you want to hurt yourself or someone else? Patient reports no desire to harm self or others. Onset of symptoms was December 23, 2023. 16:31 Method Of Arrival: Ambulatory 16:31 Acuity: GENA 3 iw Historical: - Allergies: 16:32 No Known Allergies; iw - PMHx: 16:32 Asthma; iw - PSHx: 16:32 Appendectomy; iw - Immunization history:: Adult Immunizations not up to date. - Infectious Disease History:: Denies. - Social history:: Smoking status: Patient denies any tobacco usage or history of. Screenin:24 [facility] ED Fall Risk Assessment (Adult) History of falling in the last 3 months, db including since admission No falls in past 3 months (0 pts) Confusion or Disorientation No (0 pts) Intoxicated or Sedated No (0 pts) Impaired Gait No (0 pts) Mobility Assist Device Used No (0 pt) Altered Elimination No (0 pt) Score/Fall Risk Level 0 - 2 = Low Risk Oriented to surroundings, Maintained a safe environment. Abuse screen: Denies threats or abuse. Denies injuries from another. Nutritional screening: No deficits noted. Tuberculosis screening: No symptoms or risk factors identified. Assessment: 17:07 Reassessment: Patient appears in no apparent distress at this time. Patient and/or db family updated on plan of care and expected duration. Pain level reassessed. Patient is alert, oriented x 3, equal unlabored respirations, skin warm/dry/pink. General: Appears in no apparent distress. comfortable, Behavior is calm, cooperative. Pain: Denies pain. Neuro: Level of Consciousness is awake, alert, obeys commands, Oriented to person, place, time, situation. Respiratory: Reports shortness of breath. 19:10 Reassessment: Patient appears in no apparent distress at this time. Patient and/or bm8 family updated on plan of care and expected duration. Pain level reassessed. Patient is alert, oriented x 3, equal unlabored respirations, skin warm/dry/pink. report from Toya rn Patient states feeling better. Patient states symptoms have improved. General: Appears in no apparent distress. comfortable, Behavior is calm, cooperative, appropriate for age. Pain: Denies pain. Neuro: No deficits noted. Level of Consciousness is awake, alert, obeys commands, Oriented to person, place, time, situation, Appropriate for age. Cardiovascular: Denies chest pain, Heart tones S1 S2 present. Respiratory: Airway is patent Trachea midline Respiratory effort is even, unlabored, Respiratory pattern is regular, symmetrical, Breath sounds are clear bilaterally. GI: No signs and/or symptoms were reported involving the gastrointestinal system. : No signs and/or symptoms were reported regarding the genitourinary system. EENT: No signs and/or symptoms were reported regarding the EENT system. Derm: No signs and/or symptoms reported regarding the dermatologic system. Musculoskeletal: No signs and/or symptoms reported regarding the musculoskeletal system. 21:24 Reassessment: Patient appears in no apparent distress at this time. No changes from bm8 previously documented assessment. Patient and/or family updated on plan of care and expected duration. Pain level reassessed. Patient is alert, oriented x 3, equal unlabored respirations, skin warm/dry/pink. Patient denies pain at this time. Patient states feeling better. Patient states symptoms have improved. Vital Signs: 16:31 BP 121 / 74; Pulse 122; Resp 19; Temp 97.4; Pulse Ox 98% on R/A; iw 17:00 BP 114 / 84; Pulse 121; Resp 18; Pulse Ox 95% on R/A; db 18:38 BP 105 / 79; Pulse 100; Resp 18; Pulse Ox 100% ; db 19:10 BP 105 / 79; Pulse 103; Resp 14; Temp 97.4; Pulse Ox 100% on Nebulizer Mask; Pain 0/10; bm8 20:59 BP 104 / 66; Pulse 101; Resp 16 S; Pulse Ox 96% on R/A; lg3 19:10 Pain Scale: Adult bm8 Abbie Coma Score: 19:10 Eye Response: spontaneous(4). Motor Response: obeys commands(6). Verbal Response: bm8 oriented(5). Total: 15. ED Course: 16:15 Patient arrived in ED. mg5 16:28 Girish Sánchez PA is PHCP. cp 16:28 Nathan Maradiaga MD is Attending Physician. cp 16:32 Triage completed. iw 16:32 Arm band placed on. iw 16:48 Madisyn Chin, QING is Primary Nurse. db 17:03 Initial lab(s) drawn, by me, sent to lab. Inserted saline lock: 20 gauge in left db antecubital area, using aseptic technique. Blood collected. Flushed with 10 mL NS. 17:36 XRAY Chest (1 view) In Process Unspecified. EDMS 17:50 US Extremity Venous W Compression Simone In Process Unspecified. EDMS 18:26 CT Chest For PE Angio In Process Unspecified. EDMS 19:09 Patient has correct armband on for positive identification. Bed in low position. Call db light in reach. Side rails up X 1. Provided Education on: . Client placed on continuous cardiac and pulse oximetry monitoring. NIBP monitoring applied. school bus monitor on. Pulse ox on. NIBP on. 19:10 No provider procedures requiring assistance completed. IV is patent, with fluids bm8 infusing freely, with good blood return, fluids infusing at perscribed rate. 19:34 Pierre Welch MD is Hospitalizing Provider. cp 21:42 Patient admitted, IV remains in place. bm8 Administered Medications: 17:50 Discontinued: ns 0.9% 1000 ml IV at 1 bolus Per protocol; 1000 mL bolus cp 17:21 Drug: NS 0.9% IV 1000 ml IV at 1 bolus Per protocol; 1000 mL bolus Route: IV; Rate: 1 db bolus; Site: left antecubital; 21:23 Follow up: Response: No adverse reaction; IV Status: Completed infusion bm8 17:21 Drug: Metoprolol IVP 5 mg IVP once; Hold for SBP <100 or HR <60. Route: IVP; Site: left db antecubital; 21:23 Follow up: Response: No adverse reaction bm8 18:35 Drug: Metoprolol PO 25 mg PO once Route: PO; db 21:23 Follow up: Response: No adverse reaction bm8 18:38 Drug: DuoNeb Nebulize (2.5 mg - 0.5 mg) 3 ml Nebulizer once Route: Nebulizer; db 21:23 Follow up: Response: No adverse reaction bm8 18:45 Drug: MethylPrednisoLONE IVP 125 mg IVP once Route: IVP; Site: left antecubital; db 21:23 Follow up: Response: No adverse reaction bm8 19:51 Drug: Furosemide IVP 20 mg IVP once; give over 2 minutes Route: IVP; Site: left lg3 antecubital; 21:22 Follow up: Response: No adverse reaction bm8 Medication: 19:10 VIS not applicable for this client. bm8 Outcome: 19:37 Decision to Hospitalize by Provider. cp 21:42 Admitted to Med/surg accompanied by nurse, via wheelchair, room 229, with chart, bm8 21:42 Condition: stable 21:42 Instructed on the need for admit, Demonstrated understanding of instructions, follow-up care, 21:43 Patient left the ED. bm8 Signatures: Dispatcher [employer] EDJasmin Kelly, RN Girish Vásquez PA PA cp Able, Lacie, RN RN lg3 Madisyn Chin RN RN db [place], [facility] [place], [place] Gopal Matias RN RN bm8
[2023-12-23] MEDS ORDERED: FUROSEMIDE 20 MG/ 2ML VIAL ONE (19:46)
[2023-12-23] MEDS ORDERED: ONDANSETRON 4 MG/2 ML VIAL IV PRN (20:29)
[2023-12-23] MEDS ORDERED: ALBUTEROL 2.5 MG/3 ML NEB SOL NEB PRN (20:29)
--- NOTE | 2023-12-23 20:30 | P.HP ---
Certification for Inpatient Patient admitted to: Inpatient With expected LOS: >2 Midnights Practitioner: I am a practitioner with admitting privileges, knowledge of patient current condition, hospital course, and medical plan of care. Services: Services provided to patient in accordance with Admission requirements found in Title 42 Section 412.3 of the Code of Federal Regulations Patient History Date of Service: 12/24/23 Reason for admission: SOB History of Present Illness: 43-year-old male with past medical history of asthma, with recent COVID started having shortness of breath for the last few weeks which was progressively getting worse associated with chest discomfort. In spite of using inhalers shortness of breath was getting worse. Worse with even minimal exertions and was seen by the PCP and was sent over here for further management for further evaluation and for abnormal EKG. Patient denies any fever or chills. No nausea vomiting or diarrhea. No sick contacts. Denies any chest pain. Patient was seen in the ER and had a CT which was consistent with pulmonary edema and fluid overload . Allergies No Known Allergies Allergy (Unverified 12/23/23 20:42) Home medications list reviewed: Yes - Past Medical/Surgical History Past Medical History: Reviewed- Non-Contributory Past Surgical History: Reviewed- Non-Contributory - Family History Family History: Reviewed- Non-Contributory - Social History Smoking Status: Never smoker Review of Systems 10-point ROS is otherwise unremarkable Physical Examination - Vital Signs Temperature: 97.4 F Blood Pressure: 120/74 Pulse: 122 Respirations: 18 Pulse Ox (%): 94 - Physical Exam General: Alert, In no apparent distress, Oriented x3 HEENT: Atraumatic, Normocephalic Neck: Supple, 2+ carotid pulse no bruit Respiratory: Diminished, Crackles/rales, Expiratory wheezes Cardiovascular: Regular rate/rhythm, Normal S1 S2 Capillary refill: <2 Seconds Gastrointestinal: Soft and benign, W/out hepatosplenomegaly Musculoskeletal: No clubbing, No swelling Integumentary: No rashes, No breakdown, No tenderness/swelling Neurological: Normal speech, Normal strength at 5/5 x4 extr, Cranial nerves 3-12 intact, Normal reflexes 2+ Lymphatics: No axilla or inguinal lymphadenopathy - Studies Laboratory Data (last 24 hrs) 12/23/23 12/23/23 12/23/23 17:03 17:03 17:03 WBC 8.00 Hgb 14.7 Hct 45.0 Plt Count 303 PT 18.4 H INR 1.67 Sodium 132 L Potassium 4.1 BUN 15 Creatinine 1.63 H Glucose 165 H Magnesium 1.8 Total Bilirubin 0.7 AST 168 H ALT 420 H Alkaline Phosphatase 61 Assessment and Plan - Plan Acute on chronic CHF possibly systolic/diastolic Monitor closely on telemetry Started on aggressive diuresis X-ray findings consistent with CHF/pulmonary edema Oxygen supplementation Will try to wean down oxygen requirement Continue home medications Titrate as needed Will obtain an echocardiogram Cardiology consult Asthma exacerbation Bronchodilators Monitor closely on telemetry Hyponatremia Acute kidney injury Electrolytes monitor and replace accordingly Renal parameters monitor Elevated LFTs Possibly due to congestive hepatomegaly Monitor LFTs serially GI/DVT prophylaxis Advanced directive full code Discharge Plan: Home Plan to discharge in: 48 Hours - Advance Directives Does patient have a Living Will: No Does patient have a Durable POA for Healthcare: No - Code Status/Comfort Care Code Status: Full Code Time Spent Managing Pts Care (In Minutes): 48
[2023-12-23 22:41] VITALS: BMI 27.1
[2023-12-23] MEDS: FUROSEMIDE 40 MG/4 ML VIAL IV SCH (23:15)
[2023-12-24 05:24] LABS: Absolute Lymphocytes (CBC) 0.7 K/uL (0.7-4.9); Absolute Monocytes 0.1 K/uL (0.1-1.3); Absolute Neutrophil 7.1 K/uL (1.8-8.0); Basophils % 0.4 % (0-1.3); Eosinophils % 0.1 % (0-4.4); Hematocrit 43.1 % (39.6-49.0); Hemoglobin 13.9 g/dL (13.6-17.9); Lymphocytes % 8.3 % (15.3-44.8); MCH 31.4 pg (27.0-35.0); MCHC 32.3 g/dL (32.0-36.0); MPV 9.4 fL (7.6-11.3); Monocytes % 1.4 % (3.3-12.3); Neutrophils % 89.8 % (41.7-73.7); Nucleated Red Blood Cells % 0.1 % (0-0); Platelets 256 thou/uL (152-406); RBC Red Blood Cell Count 4.44 M/uL (4.33-5.43); Red Cell Distribution Width 14.6 % (12.1-15.2)
[2023-12-24 05:44] LABS: Albumin 2.6 g/dL (3.4-5.0); Albumin/Globulin Ratio 0.8 (1.1-1.8); Anion Gap 10.1 mEq/L (5.0-15.0); Bilirubin Total 0.7 mg/dL (0.2-1.0); Globulin 3.3 g/dL (2.3-3.5); Potassium 4.1 mEq/L (3.5-5.1); Protein, Total 5.9 g/dL (6.4-8.2); Troponin High Sensitivity 15.4 pg/mL (<58.9)
[2023-12-24] MEDS: ACETAMINOPHEN 325 MG TABLET PO PRN (06:24)
[2023-12-24 07:20] LABS: Band Neutrophils 2 % (0-1); Differential Total Cells Count 100; Lymphocytes 7 % (15-42); Monocytes 3 % (0-10); Segmented Neutrophils 88 % (40-80)
[2023-12-24 07:21] LABS: Blood Morphology Comment NOT SEEN (NOT SEEN); Platelet Estimate ADEQ
[2023-12-24] MEDS: ENOXAPARIN 40 MG/0.4 ML SQ SCH (09:29)
--- NOTE | 2023-12-24 10:34 | ECHO ---
HEIGHT: 6 ft 0 in WEIGHT: 200 lb 0 oz DATE OF STUDY: 12/24/[address]: Lexx Welch DO 2-DIMENSIONAL: YES M.MODE: YES DOPPLER: YES COLOR FLOW: YES TDS: PORTABLE: YES DEFINITY: BUBBLE STUDY: DIAGNOSIS: CONGESTIVE HEART FAILURE CARDIAC HISTORY: CATHERIZATION: NO SURGERY: NO PROSTHETIC VALVE: NO PACEMAKER: NO MEASUREMENTS (cm) DIASTOLIC (NORMALS) SYSTOLIC (NORMALS) IVSd 1.0 (0.6-1.2) LA Diam 3.4 (1.9-4.0) LVEF 10-15% LVIDd 6.6 (3.5-5.7) LVIDs 6.1 (2.0-3.5) %FS 8% LVPWd 1.1 (0.6-1.2) Ao Diam 3.2 (2.0-3.7) 2 DIMENSIONAL ASSESSMENT: RIGHT ATRIUM: NORMAL LEFT ATRIUM: NORMAL RIGHT VENTRICLE: NORMAL LEFT VENTRICLE: SEVERELY DILATED TRICUSPID VALVE: MILD TRICUSPID REGURGITATION MITRAL VALVE: NORMAL PULMONIC VALVE: NORMAL AORTIC VALVE: NORMAL PERICARDIAL EFFUSION: NONE AORTIC ROOT: NORMAL LEFT VENTRICULAR WALL MOTION: SEVERE GLOBAL HYPOKINESIS DOPPLER/COLOR FLOW: DIASTOLIC DYSFUNCTION COMMENTS: 1. SEVERE DILATED LEFT VENTRICLE 2. SEVERELY REDUCED LEFT VENTRICULAR SYSTOLIC FUNCTION, EJECTION FRACTION 10-15%, SEVERE GLOBAL HYPOKINESIS 3. DIASTOLIC DYSFUNCTION 4. ELEVATED FILLING PRESSURE (RIGHT ATRIAL PRESSURE GREATER THAN 20 mmHg) TECHNOLOGIST: CARMEN CAZARES
--- NOTE | 2023-12-24 12:12 | P.CNS ---
Date of Consult: 12/24/23 Chief Complaint: SOB History of Present Illness: Patient with no significant PMH except for recent COVID infection 1 month ago, started to notice TORRES that has been getting worse, also report some occasional sharp chest pain with some palpitations, no other symptoms Allergies No Known Allergies Allergy (Unverified 12/23/23 20:42) Home medications list reviewed: Yes - Past Medical/Surgical History Diabetic: No - Social History Smoking Status: Unknown if ever smoked Alcohol use: No CD- Drugs: No Caffeine use: No Place of Residence: Home Review of Systems 10-point ROS is otherwise unremarkable Physical Examination Temp Pulse Resp BP Pulse Ox 3 F L 101 H 17 112/76 96 12/24/23 06:24 12/24/23 04:00 12/24/23 04:00 12/24/23 04:00 12/24/23 04:00 General: Alert, In no apparent distress HEENT: Atraumatic, PERRLA, Mucous membr. moist/pink, EOMI, Sclerae nonicteric Neck: Supple, 2+ carotid pulse no bruit, No LAD, Without JVD or thyroid abnormality Respiratory: Clear to auscultation bilaterally, Normal air movement Cardiovascular: Regular rate/rhythm, Normal S1 S2 Gastrointestinal: Normal bowel sounds, No tenderness Musculoskeletal: No tenderness Integumentary: No rashes Neurological: Normal gait, Normal speech, Normal tone, Normal affect Lymphatics: No axilla or inguinal lymphadenopathy Laboratory Data (last 24 hrs) 12/23/23 12/23/23 12/23/23 17:03 17:03 17:03 WBC 8.00 Hgb 14.7 Hct 45.0 Plt Count 303 PT 18.4 H INR 1.67 Sodium 132 L Potassium 4.1 BUN 15 Creatinine 1.63 H Glucose 165 H Magnesium 1.8 Total Bilirubin 0.7 AST 168 H ALT 420 H Alkaline Phosphatase 61 - Problems (1) Acute combined systolic (congestive) and diastolic (congestive) heart failure Current Visit: Yes Status: Acute Plan: Patient echo shows severe dilated LV cavity with severe reduced LV systolic function and DD with severe global hypokinesis. agree with IV Lasix start Toprol XL 25 mg daily NPO after midnight for coronary angiogram in am
--- NOTE | 2023-12-24 14:57 | P.PN ---
Subjective Date of Service: 12/24/23 Chief Complaint: SOB Patient reports significant improvement in his shortness of breath. He is currently ambulatory without oxygen. He denies any chest pain. Physical Examination - Vital Signs Temperature: 3 F Blood Pressure: 112/76 Pulse: 101 Respirations: 17 Pulse Ox (%): 96 - Studies Laboratory Data (last 24 hrs) 12/23/23 12/23/23 12/23/23 17:03 17:03 17:03 WBC 8.00 Hgb 14.7 Hct 45.0 Plt Count 303 PT 18.4 H INR 1.67 Sodium 132 L Potassium 4.1 BUN 15 Creatinine 1.63 H Glucose 165 H Magnesium 1.8 Total Bilirubin 0.7 AST 168 H ALT 420 H Alkaline Phosphatase 61 Assessment And Plan - Plan Physical examination General: Alert and oriented x3, NAD, HEENT: Conjunctiva not pale, anicteric sclera Neck: Supple, no elevated JVD Heart: Heart sounds 1 and 2 normal, regular rhythm, normal rate, no pedal edema Lungs: Clear to auscultation bilaterally, adequate breath sounds bilaterally, no rhonchi or crackles. Abdomen: Soft, nondistended, nontender, normal bowel sounds. Extremities: No tenderness, no deformity Skin: Normal skin turgor, no rash, no nodules or ulcers. Neuro: No focal motor deficit. Normal speech. Psychiatry: Normal mood, no agitation. Plan Acute on chronic CHF possibly systolic/ and diastolic Echocardiogram shows dilated LV with EF of 10 to 15% and severe global dyskinesia Cardiology input appreciated. Continue diuresis Cardiology Dr. Hutchins is planning cardiac catheterization Patient is currently tolerating room Monitor and optimize electrolytes. Asthma exacerbation Bronchodilators Hypervolemia hyponatremia Acute kidney injury Patient is being diuresed with IV Lasix Monitor renal function. Nephrology consult Elevated LFTs Likely secondary to congestive hepatomegaly Monitor LFTs serially GI/DVT prophylaxis: Heparin SQ Advanced directive full code
[2023-12-24] MEDS: PNEUMOCOCCAL VACCINE 0.5 ML IMVAC ONE (16:04)
[2023-12-24] MEDS ORDERED: ALBUTEROL 2.5 MG/3 ML NEB SOL NEB PRN (16:05)
[2023-12-24] MEDS ORDERED: HEPARIN 5000 UNIT/ML 1 ML VIAL SQ SCH (17:00)
[2023-12-25] MEDS: HEPARIN 5000 UNIT/ML 1 ML VIAL ONE (01:12)
[2023-12-25 05:17] LABS: Albumin 2.7 g/dL (3.4-5.0); Phosphorus 3.9 mg/dL (2.5-4.9)
--- NOTE | 2023-12-25 08:21 | P.CNS ---
Date of Consult: 12/25/23 Reason for Consult: HERBERTH Requesting Physician: carmen sutherland Chief Complaint: SOB History of Present Illness: 43-year-old male with past medical history of asthma, with recent COVID started having shortness of breath for the last few weeks which was progressively getting worse associated with chest discomfort. In spite of using inhalers shortness of breath was getting worse. Worse with even minimal exertions and was seen by the PCP and was sent over here for further management for further evaluation and for abnormal EKG. Patient denies any fever or chills. No nausea vomiting or diarrhea. No sick contacts. Denies any chest pain. Patient was seen in the ER and had a CT which was consistent with pulmonary edema and fluid overload . 16:50 This 43 yrs old Male presents to ER via Ambulatory with complaints of Abnormal Lab cp Results - EKG. 16:50 Patient is a 43-year-old male with past medical history significant for asthma who cp presents to the emergency department with increasing shortness of breath. Patient reports he was diagnosed with COVID about a month and a half ago and since he has had increasing shortness of breath that has been worse over the last several days. Patient was sent to the emergency department from a local clinic due to an abnormal EKG and his complaints of shortness of breath. Allergies No Known Allergies Allergy (Unverified 12/23/23 20:42) Home medications list reviewed: Yes Home Medications: Albuterol Sulfate [Albuterol Sulfate Hfa] 2 puff .ROUTE PRN 12/25/23 - Past Medical/Surgical History Diabetic: No -: Asthma - Social History Smoking Status: Unknown if ever smoked Alcohol use: No CD- Drugs: No Caffeine use: No Place of Residence: Home Review of Systems 10-point ROS is otherwise unremarkable Respiratory: SOB with Excertion Physical Examination Temp Pulse Resp BP Pulse Ox 97.7 F 117 H 18 110/82 100 12/25/23 04:00 12/25/23 04:00 12/25/23 04:00 12/25/23 04:00 12/25/23 04:00 General: In no apparent distress, Oriented x3, Cooperative HEENT: Atraumatic Neck: Supple Respiratory: Clear to auscultation bilaterally Cardiovascular: No edema, Regular rate/rhythm Gastrointestinal: Soft and benign, Non-distended Musculoskeletal: No clubbing, No contractures Integumentary: No rashes, No cyanosis Neurological: Normal speech Blood work reviewed in the chart. Imagings Data: CLINICAL HISTORY: Chest pain COMPARISON: None TECHNIQUE: Thin axial CT images of the chest were obtained following administration of 100 mL Isovue 370 IV contrast. Multiplanar reconstructions, and 3-D maximum intensity projection reconstructions were generated and reviewed. Exam utilizes a protocol for optimal evaluation of pulmonary arterial tree. All CT scans are performed using dose optimization technique as appropriate and may include automated exposure control or mA/KV adjustment according to patient size. FINDINGS: A pulmonary embolus is not seen No thoracic aortic aneurysm. [id number] right and small left pleural effusions. A pericardial effusion not noted. Cardiomegaly Mild bilateral groundglass opacities within the lungs IMPRESSION: Negative for pulmonary embolism Mild bilateral groundglass opacities within the lungs may indicate mild pulmonary edema EXAMINATION: US bilateral LOWER EXTREMITY VENOUS DOPPLER CLINICAL INDICATION: Leg pain TECHNIQUE: Sonographic evaluation of the veins of the lower extremity bilaterally formed.Grayscale, color and spectral analysis performed on all vessels COMPARISON: No prior exam. FINDINGS: The common femoral, superficial femoral, greater saphenous, popliteal and posterior tibial veins bilaterally are compressible and demonstrate augmentation. Doppler demonstrates good flow. IMPRESSION: No evidence of deep venous thrombosis involving either lower extremity LEFT VENTRICULAR WALL MOTION: SEVERE GLOBAL HYPOKINESIS DOPPLER/COLOR FLOW: DIASTOLIC DYSFUNCTION COMMENTS: 1. SEVERE DILATED LEFT VENTRICLE 2. SEVERELY REDUCED LEFT VENTRICULAR SYSTOLIC FUNCTION, EJECTION FRACTION 10- 15%, SEVERE GLOBAL HYPOKINESIS 3. DIASTOLIC DYSFUNCTION 4. ELEVATED FILLING PRESSURE (RIGHT ATRIAL PRESSURE GREATER THAN 20 mmHg) Conclusions/Impression: Stage I HERBERTH likely CRS -No NSAIDs -Continue diuresis Hyponatremia -Continue furosemide Tachycardia -Beta troy per cardiology Systolic Diastolic CHF, A/C Viral CMP suspected -Low sodium diet -Daily weight -Cardiology following; cardiac cath this morning -Continue furosemide Hyperglycemia -Low sugar diet -Check A1C Transaminitis likely due to CHF -Continue diuresis Hypoalbuminemia -Consider protein supplementation Case reviewed with Dr. Sutherland Thank you kindly for the consultation.
[2023-12-25] MEDS ORDERED: VERAPAMIL HCL 10 MG/4 ML VIAL IV ONE (08:40)
[2023-12-25] MEDS ORDERED: HEPA 1000U/500MLS 2,000 UNIT/1,000 ML BAG IV ONE (08:40)
[2023-12-25] MEDS ORDERED: LIDOCAINE 1% 20 ML MDV ONE (08:40)
[2023-12-25] MEDS ORDERED: HEPARIN 10,000 UNIT/10 ML VIAL IV ONE (08:40)
[2023-12-25] MEDS ORDERED: ASPIRIN 325 MG TAB ONE (08:41)
[2023-12-25] MEDS ORDERED: TICAGRELOR 90 MG TABLET PO ONE (08:41)
[2023-12-25] MEDS ORDERED: HEPARIN 5000 UNIT/ML 1 ML VIAL ONE (08:41)
[2023-12-25] MEDS ORDERED: CLOPIDOGREL 75 MG TABLET ONE (08:41)
[2023-12-25] MEDS ORDERED: ATROPINE SULF 1 MG/10 ML SYR IV ONE (08:41)
[2023-12-25] MEDS ORDERED: FENTANYL CITR 100 MCG/2 ML ONE (08:43)
[2023-12-25] MEDS ORDERED: MIDAZOLAM HCL 2 MG/2 ML INJ ONE (08:43)
[2023-12-25 08:50] LABS: Specific Gravity 1.019 (1.005-1.030); Sqamous Epithelial None Seen /HPF (None Seen); Urine Bacteria None Seen /HPF (<20); Urine Bilirubin NEGATIVE (Negative); Urine Blood Negative (Negative); Urine Clarity Turbid (Clear); Urine Color Yellow (Yellow); Urine Crystals Unidentified Few /HPF (None Seen); Urine Culture Reflex Order NOT NEEDED; Urine Glucose NEGATIVE (Negative); Urine Ketones NEGATIVE (Negative); Urine Microscopic Reflex YN ORDER UMIC; Urine Mucus Slight /HPF (None Seen); Urine Nitrite NEGATIVE (Negative); Urine Protein NEGATIVE (Negative); Urine RBC <5 /HPF (None Seen); Urine Urobilinogen Normal (Normal); Urine WBC <5 /HPF (<5)
[2023-12-25] MEDS ORDERED: NA CHLORIDE 0.9% 500 ML ONE (08:54)
[2023-12-25] MEDS: HEPARIN 5000 UNIT/ML 1 ML VIAL SQ SCH (09:00)
[2023-12-25] MEDS ORDERED: PNEUMOCOCCAL VACCINE 0.5 ML IMVAC ONE (10:00)
[2023-12-25] MEDS: COENZYME Q10- 200 MG CAP PO SCH (12:30)
--- NOTE | 2023-12-25 12:31 | P.PN ---
Subjective Date of Service: 12/25/23 Chief Complaint: SOB Subjective: No new changes, No C/O voiced, Tolerating diet, Ambulating, Improving Review of Systems 10-point ROS is otherwise unremarkable Physical Examination - Vital Signs Temperature: 97.6 F Blood Pressure: 114/87 Pulse: 117 Respirations: 16 Pulse Ox (%): 100 - Physical Exam General: Alert, In no apparent distress HEENT: Atraumatic, PERRLA, EOMI Neck: Supple, JVD not distended Respiratory: Clear to auscultation bilaterally, Normal air movement Cardiovascular: Regular rate/rhythm, Normal S1 S2 Gastrointestinal: Normal bowel sounds, No tenderness Musculoskeletal: No tenderness Integumentary: No rashes Neurological: Normal speech, Normal tone, Normal affect Lymphatics: No axilla or inguinal lymphadenopathy - Studies Medications List Reviewed: Yes Assessment And Plan - Current Problems (Diagnosis) (1) Acute combined systolic (congestive) and diastolic (congestive) heart failure Current Visit: Yes Status: Acute Plan: Patient echo shows severe dilated LV cavity with severe reduced LV systolic fun ction and DD with severe global hypokinesis. 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
[2023-12-25] MEDS: PNEUMOCOCCAL VACCINE 0.5 ML IMVAC ONE (12:49)
--- NOTE | 2023-12-25 13:03 | EKG ---
Test Date: 2023-12-23 Test Time: 16:40:39 Design Engineering Technician: DANNY MEASUREMENT RESULTS: Intervals: Rate: 125 MO: 166 QRSD: 106 QT: 290 QTc: 418 [place]: P: 41 MO: 166 QRS: 259 T: 83 INTERPRETIVE STATEMENTS: Sinus tachycardia Possible Left atrial enlargement Right superior axis deviation Anterior infarct, age undetermined Abnormal ECG Compared to ECG 07/03/2019 20:52:35 Right superior axis now present Myocardial infarct finding now present Sinus rhythm no longer present Right-axis deviation no longer present Electronically Signed On 12-25-23 12:56:23 CDT by Rod Hutchins
[2023-12-25] MEDS: lisinopriL 5 MG TAB PO SCH (13:33)
[2023-12-25] MEDS: carvediloL 3.125 MG TAB PO SCH (13:34)
--- NOTE | 2023-12-25 15:13 | P.PN ---
Subjective Date of Service: 12/25/23 Chief Complaint: SOB Status post cardiac catheterization today. Patient reports significant improvement in shortness of breath. He has been ambulatory but reports dyspnea on exertion. He denies any chest pain. Physical Examination - Vital Signs Temperature: 97.6 F Blood Pressure: 114/87 Pulse: 117 Respirations: 16 Pulse Ox (%): 100 - Studies Medications List Reviewed: Yes Assessment And Plan - Plan Physical examination General: Alert and oriented x3, NAD, HEENT: Anicteric sclera Neck: Supple, no elevated JVD Heart: Heart sounds 1 and 2 normal, regular rhythm, normal rate, no pedal edema Lungs: Clear to auscultation bilaterally, adequate breath sounds bilaterally, no rhonchi or crackles. Abdomen: Soft, nondistended, nontender, normal bowel sounds. Extremities: No tenderness, no deformity Skin: Normal skin turgor, no rash, no nodules or ulcers. Neuro: No focal motor deficit. Normal speech. Psychiatry: Normal mood, no agitation. Plan Acute on chronic CHF possibly systolic/ and diastolic Echocardiogram shows dilated LV with EF of 10 to 15% and severe global dyskinesia Cardiology Dr. Hutchins input appreciated. Status post cardiac catheterization-normal coronary arteries reported. Viral induced cardiomyopathy suspected. Continue diuresis. Patient is ambulatory and tolerating room air. Monitor and optimize electrolytes. Patient started on Coreg and lisinopril per cardiology recommendation. Monitor BP. Monitor renal function. Asthma exacerbation Bronchodilators Hypervolemia hyponatremia Acute kidney injury Patient is being diuresed with IV Lasix Nephrology input appreciated. Monitor renal function. Elevated LFTs Likely secondary to congestive hepatomegaly Monitor LFTs. GI/DVT prophylaxis: Heparin SQ Advanced directive full code
[2023-12-25] MEDS: IPRATROPIUM BROM 0.5MG/2.5ML NEB PRN (15:34)
[2023-12-25] MEDS: MAGNESIUM CHLORIDE 64 MG TAB PO SCH (20:05)
[2023-12-25] MEDS: DOCUSATE NA 100 MG CAP PO SCH (20:05)
--- NOTE | 2023-12-25 22:11 | OP ---
Date of Procedure: 12/25/2023 Surgeon: Rod Hutchins Procedures Performed: 1.Left heart catheterization. 2.Selective coronary angiogram. Indication For Procedure: Newly diagnosed systolic and diastolic heart failure. Complications: None. Estimated Blood Loss: Less than 50 cc. Access: Right radial, closed by TR band. Sedation Time: 20 minutes with 1 of Versed and 25 of fentanyl. Description Of Procedure: After risks, benefits, and alternatives were explained to the patient, pat ient agreed to proceed with the procedure and signed informed consent. The patient was brought back to the seed laboratory assistant, prepped and draped in a sterile fashion. Time-out was performed. Sedation was admi nistered. Next, the right radial access was obtained. A [place] 4 catheter was advanced over the J-wi re to the LV cavity. LVEDP was obtained. Pullback did not show any gradient. Same catheter was use d for selective angiogram of the left and right coronary systems. At the end of procedure, catheter was removed over a J-wire. Sheath was removed. TR band was applie d. Hemostasis was achieved. The patient was moved back to recovery in stable condition. Findings: 1.Left main: Normal. 2.LAD: Normal. 3.Left circ: Normal. 4.RCA: Normal. 5.LVEDP 36 mmHg. Assessment And Plan: 1.Normal coronaries. 2.Elevated filling pressure. 3.We will continue aggressive medical management for heart failure. SANAM/CARMINA Voice ID: [id number] Report ID: [id number]
[2023-12-26 05:12] LABS: Albumin 2.6 g/dL (3.4-5.0); Albumin/Globulin Ratio 0.8 (1.1-1.8); Anion Gap 8.9 mEq/L (5.0-15.0); Globulin 3.2 g/dL (2.3-3.5); Potassium 3.9 mEq/L (3.5-5.1); Protein, Total 5.8 g/dL (6.4-8.2)
[2023-12-26 09:03] VITALS: BP 102/71; TEMP 97.4; O2SAT 96
--- NOTE | 2023-12-26 09:19 | P.DS ---
Admission Date: 12/23/23 Discharge Date: 12/26/23 Disposition: ROUTINE DISCHARGE Discharge Condition: FAIR Reason for Admission: SOB Brief History of Present Illness: 43-year-old male with past medical history of asthma, with recent COVID presented to the ER with progressive shortness of breath associated with chest discomfort. Patient was seen by the PCP, noted to have abnormal EKG and was sent to the ER for further management. Patient was evaluated in the ER and had a CT which was consistent with pulmonary edema and fluid overload. Initial troponin negative. Patient was hospitalized for further management. Hospital Course: Acute on chronic CHF possibly systolic/ and diastolic Echocardiogram shows dilated LV with EF of 10 to 15% and severe global dyskinesia. Patient treated with IV lasix He was seen and evaluated by cardiology Dr. Hutchins. Status post cardiac catheterization which reported normal coronary arteries reported. Viral induced cardiomyopathy suspected. Patient effective diuretics and the shortness of breath improved. Patient is ambulatory and tolerating room air. Patient started on Coreg and lisinopril per cardiology recommendation. Overall patient is clinically improved with stable vitals. Deemed stable for discharge. Patient to follow-up with cardiology as outpatient. Asthma exacerbation Treated with bronchodilators as needed. Hypervolemia hyponatremia Acute kidney injury Patient is being diuresed with IV Lasix Patient seen and evaluated by nephrology Patient has hyponatremia which has been stable with diuresis. Elevated LFTs Likely secondary to congestive hepatomegaly Vital Signs/Physical Exam: Temp Pulse Resp BP Pulse Ox 97.4 F 103 H 18 102/71 96 12/26/23 08:00 12/26/23 09:03 12/26/23 08:00 12/26/23 09:03 12/26/23 08:00 General: Alert, In no apparent distress, Oriented x3 HEENT: Mucous membr. moist/pink Neck: JVD not distended Respiratory: Clear to auscultation bilaterally, Normal air movement Cardiovascular: No edema, Regular rate/rhythm, Normal S1 S2 Gastrointestinal: Normal bowel sounds, Soft and benign, Non-distended Musculoskeletal: No swelling Integumentary: No rashes, No cyanosis Neurological: Normal strength at 5/5 x4 extr Laboratory Data at Discharge: WBC 7.90 thou/uL (4.3-10.9) 12/24/23 05:05 Hgb 13.9 g/dL (13.6-17.9) 12/24/23 05:05 Hct 43.1 % (39.6-49.0) 12/24/23 05:05 Plt Count 256 thou/uL (152-406) 12/24/23 05:05 PT 18.4 SECONDS (9.4-12.5) H 12/23/23 17:03 INR 1.67 12/23/23 17:03 Sodium 132 mEq/L (136-145) L 12/26/23 04:04 Potassium 3.9 mEq/L (3.5-5.1) 12/26/23 04:04 BUN 23 mg/dL (7-18) H 12/26/23 04:04 Creatinine 1.71 mg/dL (0.70-1.30) H 12/26/23 04:04 Glucose 96 mg/dL (74-106) 12/26/23 04:04 Phosphorus 3.9 mg/dL (2.5-4.9) 12/25/23 04:05 Magnesium 1.8 mg/dL (1.6-2.4) 12/24/23 16:18 Total Bilirubin 1.0 mg/dL (0.2-1.0) 12/26/23 04:04 AST 103 U/L (15-37) H 12/26/23 04:04 ALT 345 U/L (16-61) H 12/26/23 04:04 Alkaline Phosphatase 59 U/L (45-117) 12/26/23 04:04 Triglycerides 107 mg/dL (<150) 12/25/23 04:05 Cholesterol 128 mg/dL (<200) 12/25/23 04:05 HDL Cholesterol 25 mg/dL (40-60) L 12/25/23 04:05 Cholesterol/HDL Ratio 5.12 12/25/23 04:05 Home Medications: Albuterol Sulfate [Albuterol Sulfate Hfa] 2 puff .ROUTE PRN 12/25/23 Furosemide [Lasix] 40 mg PO DAILY #30 tab 12/26/23 Magnesium Chloride [Slow-Mag*] 64 mg PO BID #60 tab 12/26/23 Ubidecarenone [Coenzyme Q10*] 200 mg PO DAILY #30 cap 12/26/23 carvediloL [Coreg*] 3.125 mg PO BID 6AM 6PM #60 tab 12/26/23 lisinopriL [Prinivil*] 2.5 mg PO DAILY #30 tab 12/26/23 New Medications: Ubidecarenone [Coenzyme Q10*] 200 mg PO DAILY #30 cap carvediloL [Coreg*] 3.125 mg PO BID 6AM 6PM #60 tab Furosemide [Lasix] 40 mg PO DAILY #30 tab lisinopriL [Prinivil*] 2.5 mg PO DAILY #30 tab Magnesium Chloride [Slow-Mag*] 64 mg PO BID #60 tab Diet: AHA Activity: Ad samson Followup: Rod Hutchins MD [ACTIVE - CAN ADMIT] - 1 Week NONE,NONE [Primary Care Provider] - Andrew Bain DO [ACTIVE - CAN ADMIT] - 1 Week Time spent managing pt's care (in minutes): 35
== END 2023-12-26 09:48 | disposition home or self-care (01) | DRG 287 ==
LOC: ER 16:10 → ERHOLD 20:29 → 2ND 21:07
PROVIDERS: ADMIT Family Medicine; ATTEND Internal Medicine
PROC: B2111ZZ Fluoroscopy of Multiple Coronary Arteries using Low Osmolar Contrast (ICD-10-PCS; principal; 2023-12-25)
PROC: 4A023N7 Measurement of Cardiac Sampling and Pressure, Left Heart, Percutaneous Approach (ICD-10-PCS; 2023-12-25)
DX: I50.43 Acute on chronic combined systolic (congestive) and diastolic (congestive) heart failure (principal); E87.1 Hypo-osmolality and hyponatremia; J45.901 Unspecified asthma with (acute) exacerbation; N17.9 Acute kidney failure, unspecified; E88.09 Other disorders of plasma-protein metabolism, not elsewhere classified; R16.0 Hepatomegaly, not elsewhere classified; R73.9 Hyperglycemia, unspecified; R74.01 Elevation of levels of liver transaminase levels; Z23 Encounter for immunization; Z86.16 Personal history of COVID-19; Z79.02 Long term (current) use of antithrombotics/antiplatelets; Z90.49 Acquired absence of other specified parts of digestive tract; Z79.899 Other long term (current) drug therapy
CPT/HCPCS: 36415; 71045; 71275; 76937; 80048; 80053; 80061; 80069; 80076; 81001; 83036; 83735; 83880; 84484; 85025; 85379; 85610; 90471; 90732; 93005; 93306; 93458; 93970; 94760; 96361; 96374; 96375; 99152; 99153; 99285; C1893; J0461; J1644; J1650; J1940; J2001; J2250; J2919; J3010; J7030; J7040; J7613; J7644; Q9966; Q9967

== ENCOUNTER 2024-01-02 14:30 | Emergency (ER) | payer SELFPAY ==
--- OUTSIDE RECORDS SUMMARY | 2024-01-02 14:33 | XMS REPORT | Clinical Summary ---
Author Name Unknown Organization [facility] Address [address] [place] [address] Care Team Providers Care Silk Printer Name Role Phone Kia Hollingsworth APRN Primary Care Provider [phone] [phone] Allergies No known active allergies Medications Medication Sig Dispensed Refills Start Date End Date Status albuterol (VENTOLIN HFA,PROAIR HFA) 90 mcg/puff inhaler 08/30/2022 Active testosterone cypionate 200 mg/mL kit 0.5 ml Intramuscular every week for 90 days 09/12/2021 Active Active Problems No known active problems Encounters Date Type Department Care Team Description 06/14/2023 1:40 PM CDT Clinical Support Undiagnosed Breast Clinic [address] [place] [address], [address]th [place] [address] Kia Hollingsworth APRN 06/14/2023 10:18 AM CDT - 06/14/2023 11:59 PM CDT Hospital Encounter Breast Imaging [address] [facility], 5th [place] [address] Jared Nunez APRN Unspecified lump in unspecified breast Discharge Disposition: Home 06/14/2023 8:52 AM CDT - 06/14/2023 10:17 AM CDT Hospital Encounter Breast Imaging [address] [facility], [address]th [place] [address] Jared Nunez APRN Unspecified lump in unspecified breast Discharge Disposition: Home 06/14/2023 8:00 AM CDT Office Visit Undiagnosed Breast Clinic [address] [facility], [address]th [place] [address] Kia Hollingsworth APRN Unspecified lump in unspecified breast (Primary Dx); Mastodynia; Rash and other nonspecific skin eruption 06/14/2023 Travel 06/12/2023 2:00 PM CDT NPR MDA PATIENT ACCESS Kia Hollingsworth APRN 06/07/2023 Orders Only Undiagnosed Breast Clinic [address] [facility], [address]th [place] [address] NunezJared smith Bouchra Hernandez, MANAGER OF PATIENT Unspecified lump in unspecified breast (Primary Dx) 05/30/2023 Travel after 01/02/2023 Immunizations Name Administration Dates Next Due Pneumococcal [...] CDT Unspecified lump in unspecified breast after 01/02/2023 Results * US Breast Complete Bilateral (06/14/2023 [...] Additional Imaging Evaluation Coleman Bouchra Hernandez Nunez MANAGER OF PATIENT IMG MAMMOGRAP HY ORDERABLES after 01/02/2023 Care Teams Silk Printer Relationship Specialty Start Date End Date Kia Hollingsworth, MANAGER OF PATIENT [address] [place] [address] [email or web address] PCP - General Cancer Prevention 06/05/23
--- NOTE | 2024-01-02 15:03 | RAD REPORT ---
EXAMINATION: ONE VIEW CHEST XR CLINICAL INDICATION: Male, 43 years old.CHF TECHNIQUE: 1 View, AP supine, X-ray of the chest was performed. [id number]. COMPARISON: Chest CT 12/23/2023, chest radiograph 12/23/2023 FINDINGS: Lungs and pleura: Prominence of the basilar interstitial markings. Possible small pleural effusions. Heart and mediastinum: Cardiomegaly. Unremarkable mediastinal contours. Osseous structures: No acute abnormality. Tubes/lines: None Other: None. IMPRESSION: Suspect mild pulmonary edema.
[2024-01-02] MEDS ORDERED: FUROSEMIDE 40 MG/4 ML VIAL ONE (15:08)
[2024-01-02 15:31] LABS: Absolute Basophils 0.1 K/uL (0-0.5); Absolute Eosinophils 0.2 K/uL (0-0.5); Absolute Lymphocytes (CBC) 0.8 K/uL (0.7-4.9); Absolute Monocytes 0.6 K/uL (0.1-1.3); Absolute Neutrophil 5.3 K/uL (1.8-8.0); Basophils % 1.1 % (0-1.3); Hematocrit 39.4 % (39.6-49.0); Hemoglobin 12.9 g/dL (13.6-17.9); Lymphocytes % 11.4 % (15.3-44.8); MCH 30.5 pg (27.0-35.0); MCHC 32.8 g/dL (32.0-36.0); MCV 93.1 fL (80-100); MPV 9.4 fL (7.6-11.3); Monocytes % 8.4 % (3.3-12.3); Neutrophils % 76.1 % (41.7-73.7); Platelets 219 thou/uL (152-406); RBC Red Blood Cell Count 4.23 M/uL (4.33-5.43); Red Cell Distribution Width 14.7 % (12.1-15.2)
[2024-01-02 15:58] LABS: Albumin 2.7 g/dL (3.4-5.0); Albumin/Globulin Ratio 0.8 (1.1-1.8); Anion Gap 12.5 mEq/L (5.0-15.0); Bilirubin Direct 0.3 mg/dL (0-0.2); Bilirubin Indirect, Calculated 0.4 mg/dL (0.2-0.8); Bilirubin Total 0.7 mg/dL (0.2-1.0); Globulin 3.2 g/dL (2.3-3.5); Potassium 3.5 mEq/L (3.5-5.1); Protein, Total 5.9 g/dL (6.4-8.2)
--- NOTE | 2024-01-02 17:09 | ER ---
Nurse's Notes [facility] Name: Angel Alvares Age: 43 yrs Sex: Male : 1980 Arrival Date: 01/02/2024 Time: 14:30 Bed 20 Private MD: Diagnosis: Unspecified combined systolic (congestive) and diastolic (congestive) heart failure Presentation: 01/01 14:35 Chief complaint: Patient states: SOB and leg swelling, reports was recently released aa5 from hospital. Coronavirus screen: At this time, the client does not indicate any symptoms associated with coronavirus-19. Ebola Screen: Patient denies travel to an Ebola-affected area in the 21 days before illness onset. Initial Sepsis Screen: Does the patient meet any 2 criteria? No. Patient's initial sepsis screen is negative. Does the patient have a suspected source of infection? No. Patient's initial sepsis screen is negative. Risk Assessment: Do you want to hurt yourself or someone else? Patient reports no desire to harm self or others. Onset of symptoms was December 2023. 14:35 Acuity: GENA 3 aa5 14:35 Method Of Arrival: Ambulatory aa5 Historical: - Allergies: 14:39 No Known Allergies; aa5 - PMHx: 14:36 Asthma; Heart Failure (Unknown); aa5 14:37 Alcohol abuse; aa5 - PSHx: 14:36 Appendectomy; aa5 - Immunization history:: Adult Immunizations unknown. - Infectious Disease History:: Denies. - Social history:: Smoking status: Patient denies any tobacco usage or history of. - Family history:: not pertinent. - Hospitalizations: : No recent hospitalization is reported. Screenin:14 [facility] ED Fall Risk Assessment (Adult) History of falling in the last 3 months, bp including since admission No falls in past 3 months (0 pts) Confusion or Disorientation No (0 pts) Intoxicated or Sedated No (0 pts) Impaired Gait No (0 pts) Mobility Assist Device Used No (0 pt) Altered Elimination No (0 pt) Score/Fall Risk Level 0 - 2 = Low Risk. Abuse screen: Denies threats or abuse. Denies injuries from another. Nutritional screening: No deficits noted. Tuberculosis screening: No symptoms or risk factors identified. Assessment: 16:00 General: Appears in no apparent distress. comfortable, Behavior is calm, cooperative, jb4 appropriate for age. Pain: Denies pain. Neuro: Level of Consciousness is awake, alert, obeys commands, Oriented to person, place, time, situation. Cardiovascular: Patient's skin is warm and dry. Respiratory: Airway is patent Respiratory effort is even, unlabored, Respiratory pattern is regular, symmetrical. GI: No signs and/or symptoms were reported involving the gastrointestinal system. : No signs and/or symptoms were reported regarding the genitourinary system. EENT: No signs and/or symptoms were reported regarding the EENT system. Derm: Skin is intact, Skin is pink, warm \T\ dry. 16:00 Musculoskeletal: Circulation, motion, and sensation intact. Range of motion: intact in jb4 all extremities. 17:22 Reassessment: Patient appears in no apparent distress at this time. Patient and/or jb4 family updated on plan of care and expected duration. Pain level reassessed. Patient is alert, oriented x 3, equal unlabored respirations, skin warm/dry/pink. Vital Signs: 14:35 BP 121 / 80; Pulse 109; Resp 28 S; Temp 98.1(O); Pulse Ox 100% on R/A; Weight 99.79 kg aa5 (R); Height 6 ft. 0 in. (R); 16:43 BP 118 / 74; Pulse 102; Resp 14; Pulse Ox 100% on R/A; jb4 14:35 Body Mass Index 29.84 (99.79 kg, 182.88 cm) aa5 ED Course: 14:32 Patient arrived in ED. aa5 14:32 Nathan Maradiaga MD is Attending Physician. rn 14:35 Arm band placed on. aa5 14:36 Triage completed. aa5 14:54 Chaitanya Parks, QING is Primary Nurse. bp 14:55 XRAY Chest (1 view) In Process Unspecified. EDMS 15:14 Patient has correct armband on for positive identification. bp 15:14 Initial lab(s) drawn, by me, sent to lab. Inserted saline lock: 20 gauge in right bp forearm, using aseptic technique. Blood collected. Flushed with 10 mL NS. 17:22 Provided Education on: discharge instructions.. jb4 17:22 No provider procedures requiring assistance completed. IV discontinued, intact, jb4 bleeding controlled, No redness/swelling at site. Pressure dressing applied. Administered Medications: 15:14 Drug: Furosemide IVP 60 mg IVP once; give over 2 minutes Route: IVP; Site: right bp forearm; 16:15 Follow up: Response: No adverse reaction; Marked relief of symptoms jb4 Medication: 17:22 VIS not applicable for this client. jb4 Outcome: 17:08 Discharge ordered by . rn 17:22 Discharged to home ambulatory, jb4 17:22 Condition: stable 17:22 Discharge instructions given to patient, Instructed on discharge instructions, follow up and referral plans. Demonstrated understanding of instructions, follow-up care, 17:23 Patient left the ED. jb4 Signatures: Dispatcher [employer] EDMS Nathan Maradiaga MD MD rn Calderon, Audri RN RN aa5 Irwin Varma RN RN jb4 Chaitanya Parks RN RN bp Corrections: (The following items were deleted from the chart) 14:41 14:35 BP 121 / 80; Pulse 109bpm; Resp 28bpm; Spontaneous; Pulse Ox 100% RA; Temp 98.1F aa5 Oral; aa5
--- NOTE | 2024-01-02 17:09 | EDPHYS ---
Physician Documentation [facility] Name: Angel Alvares Age: 43 yrs Sex: Male : 1980 Arrival Date: 01/02/2024 Time: 14:30 Bed 20 Private MD: ED Physician Nathan Maradiaga HPI: 01/01 16:30 This 43 yrs old Male presents to ER via Ambulatory with complaints of Swelling of Lower rn Extremity, Shortness Of Breath. 16:30 The patient presents with swelling. The complaints affect the right leg and left leg. rn Onset: The symptoms/episode began/occurred yesterday. Modifying factors: The symptoms are alleviated by elevating leg, the symptoms are aggravated by nothing. Severity of symptoms: At their worst the symptoms were mild, in the emergency department the symptoms are unchanged. The patient has experienced similar episodes in the past. The patient has been recently been admitted at [facility]. Patient reports recent admission and discharge for CHF. Was given Lasix twice daily in the hospital and discharged 1 week ago. Patient reports during the hospitalization did not have significant lower extremity swelling, was presenting mainly with shortness of breath. Currently denies shortness of breath, feels like he is breathing at his baseline but has noticed increased swelling to bilateral feet and lower legs. States compliant with his diuretic but is only taking it once a day. No fever or chills. No history of DVT or PE. No trauma.. Historical: - Allergies: 14:39 No Known Allergies; aa5 - PMHx: 14:36 Asthma; Heart Failure (Unknown); aa5 14:37 Alcohol abuse; aa5 - PSHx: 14:36 Appendectomy; aa5 - Immunization history:: Adult Immunizations unknown. - Infectious Disease History:: Denies. - Social history:: Smoking status: Patient denies any tobacco usage or history of. - Family history:: not pertinent. - Hospitalizations: : No recent hospitalization is reported. ROS: 16:30 Constitutional: Negative for fever, chills, and weight loss, Cardiovascular: Negative rn for chest pain, positive for lower extremity edema Respiratory: Negative for shortness of breath, cough, wheezing, and pleuritic chest pain, Abdomen/GI: Negative for abdominal pain, nausea, vomiting, diarrhea, and constipation, MS/Extremity: Positive for swelling bilateral lower extremities Exam: 16:30 Constitutional: This is a well developed, well nourished patient who is awake, alert, rn and in no acute distress. Respiratory: Mild tachypnea MS/ Extremity: 1+ edema bilateral lower extremities, no open wounds, no evidence of cellulitis, no calf tenderness. Swelling is equal bilaterally Vital Signs: 14:35 BP 121 / 80; Pulse 109; Resp 28 S; Temp 98.1(O); Pulse Ox 100% on R/A; Weight 99.79 kg aa5 (R); Height 6 ft. 0 in. (R); 16:43 BP 118 / 74; Pulse 102; Resp 14; Pulse Ox 100% on R/A; jb4 14:35 Body Mass Index 29.84 (99.79 kg, 182.88 cm) aa5 MDM: 14:32 Patient medically screened. rn 17:05 Differential diagnosis: Congestive heart failure, renal failure, volume overload, rn anasarca, liver failure. Data reviewed: vital signs, nurses notes, lab test result(s), radiologic studies, plain films, and as a result, I will discharge patient. Counseling: I had a detailed discussion with the patient and/or guardian regarding the historical points, exam findings, and any diagnostic results supporting the discharge/admit diagnosis, lab results, radiology results, the need for outpatient follow up, to return to the emergency department if symptoms worsen or persist or if there are any questions or concerns that arise at home. Response to treatment: the patient's symptoms have markedly improved after treatment, Patient has responded well to IV Lasix, has urinated 6 times already. Swelling already going down. Minimal pulmonary edema on chest x-ray. No oxygen requirement. Denies dyspnea. Improvement of vital signs. Will discharge patient with doubling of his Lasix for the next 3 days and given return precautions., and as a result, I will discharge patient. 01/01 14:42 Order name: CBC with Diff; Complete Time: 15:52 rn 01/01 14:42 Order name: Basic Metabolic Panel; Complete Time: 15:58 rn 01/01 14:42 Order name: LFT's; Complete Time: 15:58 rn 01/01 15:34 Order name: BNP; Complete Time: 15:58 rn 01/01 14:42 Order name: XRAY Chest (1 view); Complete Time: 15:05 rn 01/01 14:42 Order name: IV Start; Complete Time: 15:14 rn Administered Medications: 15:14 Drug: Furosemide IVP 60 mg IVP once; give over 2 minutes Route: IVP; Site: right bp forearm; 16:15 Follow up: Response: No adverse reaction; Marked relief of symptoms jb4 Disposition Summary: 01/02/24 17:08 Discharge Ordered Notes: Location: Home rn Problem: an ongoing problem rn Symptoms: have improved rn Condition: Stable rn Diagnosis - Unspecified combined systolic (congestive) and diastolic (congestive) heart failure rn Followup: rn - With: Private Physician - When: As needed - Reason: Recheck today's complaints, Re-evaluation by your physician Discharge Instructions: - Discharge Summary Sheet rn - Edema rn - Peripheral Edema rn Forms: - Medication Reconciliation Form rn - Antibiotic furnace charger - Prescription Opioid Use rn - Patient Portal Instructions rn - Leadership Thank You Letter rn Signatures: Dispatcher [employer] EDNathan Willis MD MD rn Calderon, Audri RN RN aa5 Chaitanya Parks RN RN Irwin Murphy RN jb4 Corrections: (The following items were deleted from the chart) 14:43 14:43 CBC+H.LAB.BRZ ordered. EDMS EDMS 14:43 14:43 BASIC METABOLIC PANEL+C.LAB.BRZ ordered. EDMS EDMS 14:43 14:43 HEPATIC FUNCTION+C.LAB.BRZ ordered. EDMS EDMS 14:43 14:43 Chest Single View+RAD.RAD.BRZ ordered. EDMS EDMS
[2024-01-02 17:30] VITALS: TEMP 98.1; O2SAT 100
[2024-01-02 17:32] VITALS: BP 118/74
== END 2024-01-02 17:23 | disposition home or self-care (01) ==
LOC: ER 14:30
DX: I50.40 Unspecified combined systolic (congestive) and diastolic (congestive) heart failure (principal)
CPT/HCPCS: 36415; 71045; 80048; 80076; 83880; 85025; J1940

== ENCOUNTER 2024-01-14 11:10 | Inpatient (IN) | payer MEDICAID, OTHER, SELFPAY ==
--- OUTSIDE RECORDS SUMMARY | 2024-01-14 11:13 | XMS REPORT | Clinical Summary ---
Author Name Unknown Organization [facility] Address [address] [place] [address] Care Team Providers Care Electronic Systems Technician Name Role Phone Kia Hollingsworth APRN Primary Care Provider +1 [phone] Allergies No known active allergies Medications Medication Sig Dispensed Refills Start Date End Date Status albuterol (VENTOLIN HFA,PROAIR HFA) 90 mcg/puff inhaler 08/30/2022 Active testosterone cypionate 200 mg/mL kit 0.5 ml Intramuscular every week for 90 days 09/12/2021 Active Active Problems No known active problems Encounters Date Type Department Care Team Description 06/14/2023 1:40 PM CDT Clinical Support Undiagnosed Breast Clinic [address] [place] [address], 5th [place] [address] Kia Hollingsworth APRN 06/14/2023 10:18 AM CDT - 06/14/2023 11:59 PM CDT Hospital Encounter Breast Imaging [address] [facility], 5th [place] [address] Jared Nunez APRN Unspecified lump in unspecified breast Discharge Disposition: Home 06/14/2023 8:52 AM CDT - 06/14/2023 10:17 AM CDT Hospital Encounter Breast Imaging [address] [facility], 5th [place] [address] Jared Nunez APRN Unspecified lump in unspecified breast Discharge Disposition: Home 06/14/2023 8:00 AM CDT Office Visit Undiagnosed Breast Clinic [address] [facility], [address]th [place] [address] Kia Hollingsworth APRN Unspecified lump in unspecified breast (Primary Dx); Mastodynia; Rash and other nonspecific skin eruption 06/14/2023 Travel 06/12/2023 2:00 PM CDT NPR MDA PATIENT ACCESS Kia Hollingsworth APRN 06/07/2023 Orders Only Undiagnosed Breast Clinic [address] [facility], [address]th [place] [address] NunezJared smith Bouchra Hernandez, BONDERITE OPERATOR Unspecified lump in unspecified breast (Primary Dx) 05/30/2023 Travel after 01/14/2023 Immunizations Name Administration Dates Next Due Pneumococcal [...] CDT Unspecified lump in unspecified breast after 01/14/2023 Results * US Breast Complete Bilateral (06/14/2023 [...] Additional Imaging Evaluation Coleman Bouchra Hernandez Nunez BONDERITE OPERATOR IMG MAMMOGRAP HY ORDERABLES after 01/14/2023 Care Teams Electronic Systems Technician Relationship Specialty Start Date End Date Kia Hollingsworth, BONDERITE OPERATOR [address] [place] [address] [email or web address] PCP - General Cancer Prevention 06/05/23
[2024-01-14 13:11] LABS: Absolute Basophils 0.1 K/uL (0-0.5); Absolute Eosinophils 0.2 K/uL (0-0.5); Absolute Lymphocytes (CBC) 1.1 K/uL (0.7-4.9); Absolute Monocytes 0.5 K/uL (0.1-1.3); Absolute Neutrophil 4.8 K/uL (1.8-8.0); Basophils % 0.9 % (0-1.3); Eosinophils % 3.4 % (0-4.4); Hematocrit 41.9 % (39.6-49.0); Hemoglobin 13.6 g/dL (13.6-17.9); Lymphocytes % 16.4 % (15.3-44.8); MCH 29.8 pg (27.0-35.0); MCHC 32.4 g/dL (32.0-36.0); MCV 91.9 fL (80-100); MPV 9.3 fL (7.6-11.3); Monocytes % 7.5 % (3.3-12.3); Neutrophils % 71.8 % (41.7-73.7); Platelets 178 thou/uL (152-406); RBC Red Blood Cell Count 4.56 M/uL (4.33-5.43); Red Cell Distribution Width 15.5 % (12.1-15.2)
[2024-01-14 13:25] LABS: Anion Gap 9.9 mEq/L (5.0-15.0); Potassium 3.9 mEq/L (3.5-5.1); Troponin High Sensitivity 20.2 pg/mL (<58.9)
--- NOTE | 2024-01-14 13:28 | RAD REPORT ---
EXAMINATION: ONE VIEW CHEST XR CLINICAL INDICATION: Male, 43 years old.DYSPNEA TECHNIQUE: 1 View, AP supine, X-ray of the chest was performed. [id number]. COMPARISON: 01/02/2024 FINDINGS: Lungs and pleura: Similar to marginally improved aeration of the lungs compared prior with some vascu lar prominence. Small left pleural effusion. Heart and mediastinum: Mild cardiomegaly which is similar. Unremarkable mediastinal contours. Osseous structures: No acute abnormality. Tubes/lines: None Other: None. IMPRESSION: Similar to marginally improved aeration of the lungs with mild residual edema and at least a small le ft pleural effusion.
[2024-01-14] MEDS ORDERED: FUROSEMIDE 40 MG/4 ML VIAL ONE (14:09)
--- NOTE | 2024-01-14 14:52 | ER ---
Nurse's Notes [facility] Name: Angel Alvares Age: 43 yrs Sex: Male : 1980 Arrival Date: 01/14/2024 Time: 11:10 Bed 19 Private MD: Diagnosis: Heart failure, unspecified;Shortness of breath Presentation: 01/13 11:52 Chief complaint: SOB and nonproductive cough x 2 days. Coronavirus screen: At this hb time, the client does not indicate any symptoms associated with coronavirus-19. Ebola Screen: No symptoms or risks identified at this time. Initial Sepsis Screen: Does the patient meet any 2 criteria? No. Patient's initial sepsis screen is negative. Does the patient have a suspected source of infection? No. Patient's initial sepsis screen is negative. Risk Assessment: Do you want to hurt yourself or someone else? Patient reports no desire to harm self or others. Onset of symptoms was January 14, 2024. 11:52 Method Of Arrival: Ambulatory hb 11:52 Acuity: GENA 3 hb Triage Assessment: 14:18 Respiratory: the patient has mild shortness of breath. ph Historical: - Allergies: 11:53 No Known Allergies; hb - PMHx: 11:53 alcohol abuse; Asthma; hb 11:54 Heart Failure; hb - PSHx: 11:53 Appendectomy; hb - Immunization history:: Adult Immunizations up to date. - Infectious Disease History:: Denies. - Social history:: Smoking status: Patient denies any tobacco usage or history of. Screenin:[facility] ED Fall Risk Assessment (Adult) History of falling in the last 3 months, ph including since admission No falls in past 3 months (0 pts) Confusion or Disorientation No (0 pts) Intoxicated or Sedated No (0 pts) Impaired Gait No (0 pts) Mobility Assist Device Used No (0 pt) Altered Elimination No (0 pt) Score/Fall Risk Level 0 - 2 = Low Risk Oriented to surroundings, Maintained a safe environment, Hourly rounding (assess needs \T\ fall precautionary measures) done. Abuse screen: Denies threats or abuse. Denies injuries from another. Nutritional screening: No deficits noted. Tuberculosis screening: No symptoms or risk factors identified. Assessment: 14:15 General: Appears in no apparent distress. Behavior is calm, cooperative. Pain: ph Complains of pain in chest Quality of pain is described as pressure. Neuro: Level of Consciousness is awake, alert, obeys commands, Oriented to person, place, time, situation. Cardiovascular: Reports chest pain, shortness of breath, Capillary refill < 3 seconds in bilateral fingers Patient's skin is warm and dry. Rhythm is regular. Respiratory: Reports shortness of breath at rest on exertion Airway is patent Respiratory effort is even, unlabored, Respiratory pattern is regular, symmetrical. GI: No signs and/or symptoms were reported involving the gastrointestinal system. Derm: Skin is intact, is healthy with good turgor, Skin is pink, warm \T\ dry. 21:50 Reassessment: Patient appears in no apparent distress at this time. Patient and/or jb4 family updated on plan of care and expected duration. Pain level reassessed. Patient is alert, oriented x 3, equal unlabored respirations, skin warm/dry/pink. Vital Signs: 11:52 BP 105 / 81; Pulse 108; Resp 20; Temp 98.5(TE); Pulse Ox 99% on R/A; Weight 88.45 kg; hb Height 6 ft. 0 in. ; Pain 5/10; 14:18 BP 121 / 90; Pulse 108; Resp 18; Pulse Ox 99% on R/A; ph 20:00 BP 116 / 85; Pulse 106; Resp 16; Pulse Ox 96% on R/A; jb4 21:15 BP 103 / 74; Pulse 102; Resp 16; Pulse Ox 98% on R/A; jb4 11:52 Body Mass Index 26.45 (88.45 kg, 182.88 cm) hb 11:52 Pain Scale: Adult hb ED Course: 11:15 Patient arrived in ED. ra3 11:31 Jayson Osorio DO is Attending Physician. ms3 11:53 Triage completed. hb 11:54 Arm band placed on. hb 12:32 Patient placed in an exam room, on a stretcher. ll1 12:38 Brook Escobedo, RN is Primary Nurse. ph 12:55 Initial lab(s) drawn, by me, sent to lab. EKG done, by ED staff, reviewed by Jayson Osorio DO. Inserted saline lock: 20 gauge in right antecubital area, using aseptic technique. Blood collected. Flushed with 10 mL NS. 13:17 XRAY Chest (1 view) In Process Unspecified. EDMS 14:18 Patient has correct armband on for positive identification. Bed in low position. Call ph light in reach. Side rails up X 1. Client placed on continuous cardiac and pulse oximetry monitoring. NIBP monitoring applied. ekg monitor on. 14:51 Edwin Jamison MD is Hospitalizing Provider. ms3 21:15 Provided Education on: need for admit. jb4 21:15 No provider procedures requiring assistance completed. Patient admitted, IV remains in jb4 place. Administered Medications: 14:14 Drug: Furosemide IVP 40 mg IVP once; give over 2 minutes Route: IVP; Site: right ph antecubital; Medication: 14:17 VIS not applicable for this client. ph Outcome: 14:52 Decision to Hospitalize by Provider. ms3 21:53 Admitted to ICU accompanied by nurse, via wheelchair, room 8, with chart, Report called jb4 to QING Tian 21:53 Condition: stable 21:53 Discharge instructions given to patient, Instructed on the need for admit, Demonstrated understanding of instructions, 21:54 Patient left the ED. jb4 Signatures: Dispatcher [employer] EDMS Brook Escobedo RN RN Jada Bond RN RN hb Bryson, James, RN RN jb4 Lewis, Lynsay, RN RN ll1 Jayson Osorio DO DO ms3 Marge Hull ra3 Corrections: (The following items were deleted from the chart) 11:54 11:53 PMHx: Heart Failure (Appendectomy); hb hb 11:54 11:53 PMHx: Heart Failure (Appendectomy); hb hb 11:54 11:54 PMHx: HEART FAILURE (Unknown); hb hb 21:53 21:15 Admitted to ICU accompanied by nurse, via wheelchair, room 8, with chart, Report jb4 called to QING Tian jb :53 21:15 Condition: stable jb jb4 :53 21:15 Discharge instructions given to patient, Instructed on the need for admit, jb4 Demonstrated understanding of instructions, jb4
--- NOTE | 2024-01-14 14:52 | EDPHYS ---
Physician Documentation [facility] Name: Angel Alvares Age: 43 yrs Sex: Male : 1980 Arrival Date: 01/14/2024 Time: 11:10 Bed 19 Private MD: ED Physician Jayson Osorio HPI: 01/13 11:52 This 43 yrs old Male presents to ER via Unassigned with complaints of Shortness Of ms3 Breath. 11:52 43-year-old male with past medical history of heart failure presents to the emergency ms3 department for shortness of breath that began yesterday at 3 PM. Patient states he was admitted 1-1/2 months ago for heart failure and has been compliant with his medications. Patient notes he has not been watching his diet. Patient does endorse pedal edema and shortness of breath. Patient states that shortness of breath is worse when laying flat or during exertion.. Historical: - Allergies: 11:53 No Known Allergies; hb - PMHx: 11:53 alcohol abuse; Asthma; hb 11:54 Heart Failure; hb - PSHx: 11:53 Appendectomy; hb - Immunization history:: Adult Immunizations up to date. - Infectious Disease History:: Denies. - Social history:: Smoking status: Patient denies any tobacco usage or history of. ROS: 11:52 Constitutional: Negative for fever, and chills. Neck: Negative for injury, pain, and ms3 swelling, Cardiovascular: Negative for chest pain, and palpitations. 11:52 MS/Extremity: Negative for injury and deformity, Skin: Negative for injury, rash, and discoloration, 11:52 Respiratory: Positive for dyspnea on exertion, orthopnea, shortness of breath, Exam: 11:52 Constitutional: This is a well developed, well nourished patient who is awake, alert, ms3 and in no acute distress. Chest/axilla: Normal chest wall appearance and motion. Nontender with no deformity. Cardiovascular: Regular rate and rhythm with a normal S1 and S2. No gallops, murmurs, or rubs. Normal PMI, no JVD. No pulse deficits. Respiratory: Lungs have equal breath sounds bilaterally, clear to auscultation and percussion. No rales, rhonchi or wheezes noted. No increased work of breathing, no retractions or nasal flaring. Abdomen/GI: Soft, non-tender, with normal bowel sounds. No distension or tympany. No guarding or rebound. No evidence of tenderness throughout. Skin: Warm, dry with normal turgor. Normal color with no rashes, no lesions, and no evidence of cellulitis. 11:52 Cardiovascular: Edema: 2+ edema to level of left ankle and right ankle, 14:57 ECG was reviewed by the Attending Physician. ms3 Vital Signs: 11:52 BP 105 / 81; Pulse 108; Resp 20; Temp 98.5(TE); Pulse Ox 99% on R/A; Weight 88.45 kg; hb Height 6 ft. 0 in. ; Pain 5/10; 14:18 BP 121 / 90; Pulse 108; Resp 18; Pulse Ox 99% on R/A; ph 20:00 BP 116 / 85; Pulse 106; Resp 16; Pulse Ox 96% on R/A; jb4 21:15 BP 103 / 74; Pulse 102; Resp 16; Pulse Ox 98% on R/A; jb4 11:52 Body Mass Index 26.45 (88.45 kg, 182.88 cm) hb 11:52 Pain Scale: Adult hb MDM: 11:51 Medical Screening Exam initiated ms3 11:57 Differential diagnosis: CHF exacerbation, Myocardial Infarction pulmonary edema. ms3 19:59 Data reviewed: vital signs, nurses notes, lab test result(s), EKG, radiologic studies, ms3 and as a result, I will admit patient. Consideration of Admission/Observation Patient was admitted/placed on observation. Management of patient was discussed with the following: Hospitalist: Dr Jamison. I considered the following discharge prescriptions or medication management in the emergency department Medications were administered in the Emergency Department. See MAR. Independent interpretation of the following test(s) in the Emergency Department EKG: See my EKG interpretation above personnel monitor: rate is 110 beats/min, Rhythm is sinus tachycardia, with no ectopy, Interpretation: normal rhythm, tachycardia. Counseling: I had a detailed discussion with the patient and/or guardian regarding the historical points, exam findings, and any diagnostic results supporting the discharge/admit diagnosis, lab results, radiology results, the need for further work-up and treatment in the hospital. ED course: Discussed necessity for admission with patient. Patient understands and agrees with plan. All questions were answered.. 01/13 11:52 Order name: Basic Metabolic Panel; Complete Time: 13:38 ms3 01/13 11:52 Order name: CBC with Diff; Complete Time: 13:38 ms3 01/13 11:52 Order name: NT PRO-BNP; Complete Time: 13:38 ms3 01/13 11:52 Order name: Troponin HS; Complete Time: 13:38 ms3 01/13 13:59 Order name: Troponin High Sensitivity ms3 01/13 14:28 Order name: PT-INR ms3 01/13 16:20 Order name: Basic Metabolic Panel EDMS 01/13 16:20 Order name: Basic Metabolic Panel EDMS 01/13 16:20 Order name: CBC with Automated Diff EDMS 01/13 16:20 Order name: CBC with Automated Diff EDMS 01/13 16:20 Order name: NT PRO-BNP EDMS 01/13 16:20 Order name: NT PRO-BNP EDMS 01/13 11:52 Order name: XRAY Chest (1 view); Complete Time: 13:38 ms3 01/13 15:44 Order name: BiPap ([employer] Only) EDMS 01/13 11:52 Order name: EKG; Complete Time: 11:52 ms3 01/13 11:52 Order name: Cardiac monitoring; Complete Time: 14:08 ms3 01/13 11:52 Order name: EKG - Nurse/Tech; Complete Time: 14:08 ms3 01/13 11:52 Order name: IV Saline Lock; Complete Time: 13:49 ms3 01/13 11:52 Order name: Labs collected and sent; Complete Time: 13:49 ms3 01/13 11:52 Order name: O2 Per Protocol; Complete Time: 13:49 ms3 01/13 11:52 Order name: O2 Sat Monitoring; Complete Time: 13:49 ms3 EC:57 Rate is 104 beats/min. Rhythm is regular. QRS Reading is Normal. NC interval is normal. ms3 QRS interval is normal. Clinical impression: Sinus tachycardia. Interpreted by me. Reviewed by me. Administered Medications: 14:14 Drug: Furosemide IVP 40 mg IVP once; give over 2 minutes Route: IVP; Site: right ph antecubital; Disposition Summary: 01/14/24 14:52 Hospitalization Ordered Notes: Provider: Edwin Jamison ms3 Condition: Stable ms3 Problem: new ms3 Symptoms: are unchanged ms3 Bed/Room Type: Standard ms3 Hospitalization Status: Observation(01/14/24 14:53) ms3 Location: Intensive Care Unit(01/14/24 20:32) lg3 Room Assignment: 8-(01/14/24 21:04) jb4 Diagnosis - Elevated tropoinin ms3 - Heart failure, unspecified ms3 - Shortness of breath ms3 Forms: - Medication Reconciliation Form ms3 - SBAR form ms3 - Leadership Thank You Letter ms3 Signatures: Dispatcher [employer] Brook Yuan RN RN Jada Bond RN RN Irwin Varma RN RN jb4 Juanita Fair RN RN lg3 Jayson Osorio DO DO ms3 Corrections: (The following items were deleted from the chart) 11:54 11:53 PMHx: Heart Failure (Appendectomy); hb hb 11:54 11:53 PMHx: Heart Failure (Appendectomy); hb hb 11:54 11:54 PMHx: HEART FAILURE (Unknown); hb hb 14:53 14:52 Inpatient Admission ms3 ms3 14:53 14:52 Vomiting ms3 ms3 20:32 14:52 Telemetry/MedSurg (Inpatient) ms3 lg3 20:32 14:52 ms3 lg3 21:04 20:32 4- lg3 jb4
[2024-01-14] MEDS ORDERED: SODIUM CHLORIDE 0.9% 10ML INJ IV PRN (16:10)
[2024-01-14] MEDS ORDERED: ONDANSETRON 4 MG/2 ML VIAL IV PRN (16:10)
[2024-01-14] MEDS ORDERED: ALBUTEROL 2.5 MG/3 ML NEB SOL NEB PRN (16:10)
[2024-01-14] MEDS ORDERED: IPRATROPIUM BROM 0.5MG/2.5ML NEB PRN (16:10)
--- NOTE | 2024-01-14 16:24 | P.HP ---
Certification for Inpatient Patient admitted to: Observation With expected LOS: <2 Midnights <BenYadira Knox - Last Filed: 01/14/24 21:00> Patient History Date of Service: 01/14/24 Reason for admission: Respiratory failure 2nd cardiomyopathy History of Present Illness: Mr. Alvares is a 43-year-old male with a past medical history of hypertension who unfortunately contracted COVID and it caused cardiomyopathy. He recently had a cardiac cath which showed normal coronary arteries however his echo shows an ejection fraction of 10 to 15%. He then admitted several times for shortness of breath. He takes Coreg, lisinopril, and Lasix 40 mg daily. For the last 2 days, he has become increasingly short of breath and noted paroxysmal nocturnal dyspnea. He received IV Lasix in the emergency department and was diuresing well; however, on my assessment walking from the restroom to his stretcher (about 20 feet) he was significantly winded. We will admit him for observation to the ICU for monitoring, observation for any arrhythmias, and trial of BiPAP to see if we can make him less dyspneic. Home medications list reviewed: Yes - Past Medical/Surgical History Diabetic: No -: Asthma -: Cardiomyopathy -: HFrEF -: Denies Psychosocial/ Personal History: History of hypertension and then patient contracted COVID, cardiomyopathy with extremely poor ejection fraction resulted. Pt was to return to work tomorrow but is significantly SOB with any ambulation - Social History Smoking Status: Never smoker Alcohol use: No CD- Drugs: No Caffeine use: No Place of Residence: Home <Yadira Contreras - Last Filed: 01/14/24 21:00> Date of Service: 01/14/24 - Family History Father -: Heart disease, Hypertension, Diabetes <Edwin Jamison - Last Filed: 01/15/24 10:09> Allergies No Known Allergies Allergy (Verified 01/14/24 22:14) Home Medications: Albuterol Sulfate [Albuterol Sulfate Hfa] 2 puff .ROUTE PRN 12/25/23 Furosemide [Lasix] 40 mg PO DAILY #30 tab 12/26/23 Magnesium Chloride [Slow-Mag*] 64 mg PO BID #60 tab 12/26/23 Ubidecarenone [Coenzyme Q10*] 200 mg PO DAILY #30 cap 12/26/23 carvediloL [Coreg*] 3.125 mg PO BID 6AM 6PM #60 tab 12/26/23 lisinopriL [Prinivil*] 2.5 mg PO DAILY #30 tab 12/26/23 Trazodone [Desyrel] 50 mg PO BEDTIME PRN PRN 01/14/24 Review of Systems 10-point ROS is otherwise unremarkable General: Unremarkable Eyes: Unremarkable ENT: Unremarkable Respiratory: Shortness of Breath, SOB with Excertion Cardiovascular: Orthopnea, Paroxysmal Noc. Dyspnea Gastrointestinal: Unremarkable Genitourinary: Unremarkable Musculoskeletal: Unremarkable Integumentary: Unremarkable Lymphatics: Unremarkable <BenYadira Abilio - Last Filed: 01/14/24 21:00> Physical Examination - Vital Signs Pulse: 109 Pulse Ox (%): 100 - Physical Exam General: Alert, Oriented x3, Mild distress HEENT: Atraumatic, Normocephalic Neck: Supple Respiratory: Normal air movement, Other (TORRES) Cardiovascular: Normal S1 S2, Other (tachy), Edema Capillary refill: >2 Seconds Gastrointestinal: Normal bowel sounds Musculoskeletal: No clubbing Integumentary: No rashes, Other (ashen) Neurological: Normal speech, Normal tone, Normal affect Lymphatics: No axilla or inguinal lymphadenopathy External genitalia: Deferred Rectal: Deferred - Studies Laboratory Data (last 24 hrs) 01/14/24 01/14/24 12:57 12:57 WBC 6.60 Hgb 13.6 Hct 41.9 Plt Count 178 Sodium 138 Potassium 3.9 BUN 18 Creatinine 1.76 H Glucose 121 H <Yadira Contreras - Last Filed: 01/14/24 21:00> - Studies Laboratory Data (last 24 hrs) 01/14/24 01/14/24 12:57 12:57 WBC 6.60 Hgb 13.6 Hct 41.9 Plt Count 178 Sodium 138 Potassium 3.9 BUN 18 Creatinine 1.76 H Glucose 121 H <Edwin Jamison - Last Filed: 01/15/24 10:09> Assessment and Plan - Plan Cardiomyopathy Acute respiratory failure secondary to congestive heart failure (HFrEF 10-15%) with HERBERTH (creat 1.76, GFR 49) Tele - monitor closely for arrhythmia DAVID inhibitor/ARB- hold for HERBERTH Beta-troy - coreg Cardiology consultation -done, no intervention at this time Diuresis - 20mg Lasix BID Strict Is & Os Daily weight Trial BiPAP at 12/27 Education regarding diet and treatment of congestive heart failure VTE/GI prophylaxis - Advance Directives Does patient have a Living Will: No Does patient have a Durable POA for Healthcare: No - Code Status/Comfort Care Code Status Assessed: Yes (Full) Critical Care: No <Yadira Contreras Abilio - Last Filed: 01/14/24 21:00> Date of Service: 01/14/24 Patient was seen and examined. Events of the last 24 hours have been noted. Spoke with with JONNA regarding patient's clinical picture after evaluating and examining the patient independently. I performed a substantial part of the MDM during this patient's care today. I personally made or approved the documented management plan and acknowledge its risk of complications. I agree with the findings and documentation provided in the JONNA's notes. Patient with cardiomyopathy. Spoke with Cardiology and they recommended IV diuretics and discharge with outpatient follow-up. Patient has had cardiac catheterization and ruled out ischemic cardiomyopathy. 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 Patient will need additional follow-up with Cardiology to further work this up. At this time patient is improving and anticipate discharge over the next 48 hours. <Edwin Jamison - Last Filed: 01/15/24 10:09>
[2024-01-14] MEDS: FUROSEMIDE 20 MG/ 2ML VIAL IV SCH (17:00)
[2024-01-14] MEDS: carvediloL 3.125 MG TAB PO SCH (18:00)
[2024-01-14] MEDS: TRAZODONE 50 MG TABLET PO SCH (22:48)
[2024-01-15 05:36] LABS: Absolute Basophils 0.1 K/uL (0-0.5); Absolute Eosinophils 0.5 K/uL (0-0.5); Absolute Monocytes 0.6 K/uL (0.1-1.3); Absolute Neutrophil 5.5 K/uL (1.8-8.0); Basophils % 0.8 % (0-1.3); Eosinophils % 6.6 % (0-4.4); Hematocrit 41.1 % (39.6-49.0); Hemoglobin 13.6 g/dL (13.6-17.9); Lymphocytes % 13.5 % (15.3-44.8); MCHC 33.1 g/dL (32.0-36.0); MCV 90.6 fL (80-100); MPV 8.7 fL (7.6-11.3); Monocytes % 7.8 % (3.3-12.3); Neutrophils % 71.3 % (41.7-73.7); Nucleated Red Blood Cells % 0.1 % (0-0); Platelets 174 thou/uL (152-406); RBC Red Blood Cell Count 4.54 M/uL (4.33-5.43); Red Cell Distribution Width 15.8 % (12.1-15.2)
[2024-01-15 06:02] LABS: Anion Gap 10.9 mEq/L (5.0-15.0); Potassium 3.9 mEq/L (3.5-5.1); Troponin High Sensitivity 19.4 pg/mL (<58.9)
[2024-01-15 06:36] LABS: PT Prothrombin Time 19.8 SECONDS (9.4-12.5); Protime INR 1.8
[2024-01-15] MEDS: MAGNESIUM OXIDE 400 MG TAB PO SCH (08:20)
[2024-01-15] MEDS: PANTOPRAZOLE 40 MG INJ IVP SCH (08:20)
--- NOTE | 2024-01-15 09:45 | P.DS ---
Admission Date: 01/14/24 Discharge Date: 01/15/24 Reason for Admission: Respiratory failure 2nd cardiomyopathy Brief History of Present Illness: Mr. Alvares is a 43-year-old male with a past medical history of hypertension who unfortunately contracted COVID and it caused cardiomyopathy. He recently had a cardiac cath which showed normal coronary arteries however his echo shows an ejection fraction of 10 to 15%. He then admitted several times for shortness of breath. He takes Coreg, lisinopril, and Lasix 40 mg daily. For the last 2 days, he has become increasingly short of breath and noted paroxysmal nocturnal dyspnea. He received IV Lasix in the emergency department and was diuresing well; however, on my assessment walking from the restroom to his stretcher (about 20 feet) he was significantly winded. We will admit him for observation to the ICU for monitoring, observation for any arrhythmias, and trial of BiPAP to see if we can make him less dyspneic. He also has HERBERTH with creatinine 1.76 and a decreased GFR at 49. Hospital Course: Mr. Alvares is significantly less dyspneic with BiPAP /. He wore the BiPAP through the night and his respiratory rate was in the 20s; however, when standing at bedside to void, even with BiPAP, his respiratory rate is in the mid 30s. On assessment this morning, he took BiPAP off to speak with me and had halting speech secondary to dyspnea with respiratory rate 36. He has remained in sinus tach between 97 and 108 over the course of his admission. He has been diuresing well. 700 mL output since 0645 (3 hours) this morning. Pitting edema is decreased, but patient remains quite dyspneic on even minimal exertion. Creatinine and GFR improved to 1.47 and 60 <Yadira Contreras - Last Filed: 01/15/24 11:17> Admission Date: 01/15/24 Discharge Date: 01/15/24 Hospital Course: Pt seen and examined. I agree with the note by the ASSEMBLER PING PONG TABLE. 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 Echo shows EF 10 - 15%. Will continue lasix 20mg iv BID, strict I/O and daily weight. Will continue BIPAP. <Foster Ramirez - Last Filed: 01/15/24 14:20> Discharge Condition: FAIR Vital Signs/Physical Exam: Temp Pulse Resp BP Pulse Ox 97.3 F 97 H 18 118/82 97 01/15/24 07:00 01/15/24 09:00 01/15/24 09:00 01/15/24 09:00 01/15/24 09:00 General: Alert, Cooperative, Mild distress, Moderate distress HEENT: Atraumatic, Normocephalic Neck: Supple Respiratory: Diminished Cardiovascular: Regular rate/rhythm, Edema Capillary refill: >2 Seconds Gastrointestinal: Normal bowel sounds Musculoskeletal: No clubbing, No swelling Integumentary: Other (Mildly ashen) Neurological: Normal tone, Normal affect, Abnormal speech (Holding second to dyspnea) Lymphatics: No axilla or inguinal lymphadenopathy External genitalia: Deferred Rectal: Deferred Laboratory Data at Discharge: WBC 7.70 thou/uL (4.3-10.9) 01/15/24 05:24 Hgb 13.6 g/dL (13.6-17.9) 01/15/24 05:24 Hct 41.1 % (39.6-49.0) 01/15/24 05:24 Plt Count 174 thou/uL (152-406) 01/15/24 05:24 PT 19.8 SECONDS (9.4-12.5) H 01/15/24 06:21 INR 1.80 01/15/24 06:21 Sodium 137 mEq/L (136-145) 01/15/24 05:24 Potassium 3.9 mEq/L (3.5-5.1) 01/15/24 05:24 BUN 17 mg/dL (7-18) 01/15/24 05:24 Creatinine 1.47 mg/dL (0.70-1.30) H 01/15/24 05:24 Glucose 95 mg/dL (74-106) 01/15/24 05:24 <Contreras,Yadira Abilio - Last Filed: 01/15/24 11:17> Vital Signs/Physical Exam: Temp Pulse Resp BP Pulse Ox 97.9 F 99 H 18 107/88 98 01/15/24 12:00 01/15/24 14:00 01/15/24 14:00 01/15/24 14:00 01/15/24 14:00 Laboratory Data at Discharge: WBC 7.70 thou/uL (4.3-10.9) 01/15/24 05:24 Hgb 13.6 g/dL (13.6-17.9) 01/15/24 05:24 Hct 41.1 % (39.6-49.0) 01/15/24 05:24 Plt Count 174 thou/uL (152-406) 01/15/24 05:24 PT 19.8 SECONDS (9.4-12.5) H 01/15/24 06:21 INR 1.80 01/15/24 06:21 Sodium 137 mEq/L (136-145) 01/15/24 05:24 Potassium 3.9 mEq/L (3.5-5.1) 01/15/24 05:24 BUN 17 mg/dL (7-18) 01/15/24 05:24 Creatinine 1.47 mg/dL (0.70-1.30) H 01/15/24 05:24 Glucose 95 mg/dL (74-106) 01/15/24 05:24 <Foster Ramirez - Last Filed: 01/15/24 14:20> Diet: Low sodium <Contreras,Yadira Abilio - Last Filed: 01/15/24 11:17> <Foster Ramirez - Last Filed: 01/15/24 14:20> Home Medications: Albuterol Sulfate [Albuterol Sulfate Hfa] 2 puff .ROUTE PRN 12/25/23 Furosemide [Lasix] 40 mg PO DAILY #30 tab 12/26/23 Magnesium Chloride [Slow-Mag*] 64 mg PO BID #60 tab 12/26/23 Ubidecarenone [Coenzyme Q10*] 200 mg PO DAILY #30 cap 12/26/23 carvediloL [Coreg*] 3.125 mg PO BID 6AM 6PM #60 tab 12/26/23 lisinopriL [Prinivil*] 2.5 mg PO DAILY #30 tab 12/26/23 Trazodone [Desyrel] 50 mg PO BEDTIME PRN PRN 01/14/24 Followup: NONE,NONE [Primary Care Provider] -
--- NOTE | 2024-01-15 17:29 | P.PN ---
Date of Service: 01/15/24 Subjective: BiPap helpful. RR when wearing down in 20s but with standing to void up in 30s. dyspnea when speaking. Review of Systems 10-point ROS is otherwise unremarkable General: Unremarkable Eyes: Unremarkable ENT: Unremarkable Respiratory: Shortness of Breath, SOB with Excertion Cardiovascular: Orthopnea, Paroxysmal Noc. Dyspnea Gastrointestinal: Unremarkable Genitourinary: Unremarkable Musculoskeletal: Unremarkable Integumentary: Unremarkable Lymphatics: Unremarkable Physical Examination - Vital Signs Pulse: 98 Pulse Ox (%): 100 Resp rate: 38 without BiPap just talking - Physical Exam General: Alert, Oriented x3, Mild distress HEENT: Atraumatic, Normocephalic Neck: Supple Respiratory: Normal air movement, Dyspneic, Other (TORRES), winded easily, tachypnea Cardiovascular: Normal S1 S2, Other (tachy), Edema Capillary refill: >2 Seconds Gastrointestinal: Normal bowel sounds Musculoskeletal: No clubbing Integumentary: No rashes, Other (ashen) Neurological: Normal speech, Normal tone, Normal affect Lymphatics: No axilla or inguinal lymphadenopathy External genitalia: Deferred Rectal: Deferred - Studies Laboratory Data (last 24 hrs) 01/14/24 01/14/24 12:57 12:57 WBC 6.60 Hgb 13.6 Hct 41.9 Plt Count 178 Sodium 138 Potassium 3.9 BUN 18 Creatinine 1.76 H Glucose 121 H Assessment and Plan - Plan Cardiomyopathy Acute respiratory failure secondary to congestive heart failure (HFrEF 10-15%) with HERBERTH (creat 1.76, GFR 49) Tele - monitor closely for arrhythmia DAVID inhibitor/ARB- hold for HERBERTH Beta-troy - coreg Cardiology consultation -done, no intervention at this time Diuresis - 20mg Lasix BID Strict Is & Os Daily weight Trial BiPAP at 12/27 Education regarding diet and treatment of congestive heart failure VTE/GI prophylaxis 01/15/24 feeling better with BiPap diuresing well. No accurate I&O attempting transfer to higher level consult for emergency medicaid creatinine improved to 1.43 with GFR 60 - Advance Directives Does patient have a Living Will: No Does patient have a Durable POA for Healthcare: No - Code Status/Comfort Care Code Status Assessed: Yes (Full) Critical Care: No <Yadira Contreras - Last Filed: 01/15/24 17:32> Pt seen and examined. I agree with the note by the COMPOUNDER. 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 Echo shows EF 10 - 15%. Will continue lasix 20mg iv BID, strict I/O and daily weight. Will continue BIPAP. <Foster Ramirez - Last Filed: 01/16/24 07:38>
[2024-01-15] MEDS: ACETAMINOPHEN 500 MG TAB PO PRN (20:07)
[2024-01-16 06:46] LABS: Absolute Basophils 0.1 K/uL (0-0.5); Absolute Eosinophils 0.6 K/uL (0-0.5); Absolute Monocytes 0.7 K/uL (0.1-1.3); Absolute Neutrophil 5.1 K/uL (1.8-8.0); Basophils % 0.7 % (0-1.3); Eosinophils % 8.5 % (0-4.4); Hematocrit 42.5 % (39.6-49.0); Hemoglobin 13.8 g/dL (13.6-17.9); Lymphocytes % 13.9 % (15.3-44.8); MCH 29.6 pg (27.0-35.0); MCHC 32.3 g/dL (32.0-36.0); MCV 91.7 fL (80-100); MPV 9.4 fL (7.6-11.3); Monocytes % 9.1 % (3.3-12.3); Neutrophils % 67.8 % (41.7-73.7); Platelets 192 thou/uL (152-406); RBC Red Blood Cell Count 4.64 M/uL (4.33-5.43); Red Cell Distribution Width 15.5 % (12.1-15.2)
[2024-01-16 07:08] LABS: ALT/SGPT 29 U/L (16-61); Albumin 2.8 g/dL (3.4-5.0); Albumin/Globulin Ratio 0.8 (1.1-1.8); Alkaline Phosphatase 84 U/L (45-117); Anion Gap 8.2 mEq/L (5.0-15.0); BUN Blood Urea Nitrogen 19 mg/dL (7-18); Bicarbonate 30 mEq/L (21-32); Bilirubin Total 1.1 mg/dL (0.2-1.0); Globulin 3.6 g/dL (2.3-3.5); Glomerular Filtration Rate 53 ml/min (=/>90); Glucose Level 98 mg/dL (74-106); Magnesium 2.1 mg/dL (1.6-2.4); Potassium 4.2 mEq/L (3.5-5.1); Protein, Total 6.4 g/dL (6.4-8.2); Sodium Level 139 mEq/L (136-145)
[2024-01-16 07:15] LABS: AST/SGOT < 10 U/L (15-37)
--- NOTE | 2024-01-16 12:23 | EKG ---
Test Date: 2024-01-14 Test Time: 14:06:13 Ironer Or Presser: BP MEASUREMENT RESULTS: Intervals: Rate: 104 CT: 194 QRSD: 108 QT: 366 QTc: 481 [place]: P: 59 CT: 194 QRS: 143 T: 36 INTERPRETIVE STATEMENTS: Sinus tachycardia Possible Left atrial enlargement Right axis deviation Possible Anterior infarct, age undetermined Abnormal ECG Compared to ECG 12/23/2023 16:40:39 Right-axis deviation now present Right superior axis no longer present Myocardial infarct finding still present Electronically Signed On 01-16-24 12:17:17 CDT by Rod Hutchins
--- NOTE | 2024-01-16 14:09 | P.PN ---
Date of Service: 01/16/24 Subjective: BiPap helpful. RR when wearing down in 20s but with standing to void up in 30s. dyspnea when speaking. Bipap break for a bit this am, pt RR low 30s when resting with HOB elevated. RR high 30s, even low 40s with conversation Review of Systems 10-point ROS is otherwise unremarkable General: Unremarkable Eyes: Unremarkable ENT: Unremarkable Respiratory: Shortness of Breath, SOB with Excertion Cardiovascular: Orthopnea, Paroxysmal Noc. Dyspnea Gastrointestinal: Unremarkable Genitourinary: Unremarkable Musculoskeletal: Unremarkable Integumentary: Unremarkable Lymphatics: Unremarkable Physical Examination - Vital Signs Pulse: 90 Pulse Ox (%): 94 Resp rate: 38 without BiPap just talking - Physical Exam General: Alert, Oriented x3, Mild distress HEENT: Atraumatic, Normocephalic Neck: Supple Respiratory: Normal air movement, Dyspneic, Other (TORRES), winded easily, tachypnea Cardiovascular: Normal S1 S2, Other (tachy), Edema is now minimal Capillary refill: >2 Seconds Gastrointestinal: Normal bowel sounds Musculoskeletal: No clubbing Integumentary: No rashes, Other (ashen) Neurological: Normal speech, Normal tone, Normal affect Lymphatics: No axilla or inguinal lymphadenopathy External genitalia: Deferred Rectal: Deferred - Studies Laboratory Data (last 24 hrs) 01/14/24 01/14/24 12:57 12:57 WBC 6.60 Hgb 13.6 Hct 41.9 Plt Count 178 Sodium 138 Potassium 3.9 BUN 18 Creatinine 1.76 H Glucose 121 H Assessment and Plan - Plan Cardiomyopathy Acute respiratory failure secondary to congestive heart failure (HFrEF 10-15%) with HERBERTH (creat 1.76, GFR 49) Tele - monitor closely for arrhythmia DAVID inhibitor/ARB- hold for HERBERTH Beta-troy - coreg Cardiology consultation -done, no intervention at this time Diuresis - 20mg Lasix BID Strict Is & Os Daily weight Trial BiPAP at 12/27 Education regarding diet and treatment of congestive heart failure VTE/GI prophylaxis 01/15/24 feeling better with BiPap diuresing well. No accurate I&O attempting transfer to higher level consult for emergency medicaid creatinine improved to 1.43 with GFR 60 01/16/24 emergency medicaid approved, active tomorrow Does well on BiPap 12/27 still diuresing well. lower ext edema minimal still attempting transfer to higher level of care creatinine 1.65, will back off ayana campbell - Advance Directives Does patient have a Living Will: No Does patient have a Durable POA for Healthcare: No - Code Status/Comfort Care Code Status Assessed: Yes (Full) Critical Care: No <Yadira Contreras - Last Filed: 01/16/24 14:04> Pt seen and examined. I agree with the note by the BEAUTY COUNSELOR. Pt was off BIPAP for about 90 minutes before I saw him. He has been approved for emergency medicaid. Will be active by tomorrow. Will monitor renal function. <Foster Ramirez - Last Filed: 01/16/24 14:23>
[2024-01-16] MEDS: FUROSEMIDE 20 MG/ 2ML VIAL IV SCH (17:00)
[2024-01-17 06:30] LABS: Absolute Basophils 0.1 K/uL (0-0.5); Absolute Eosinophils 0.6 K/uL (0-0.5); Absolute Lymphocytes (CBC) 1.5 K/uL (0.7-4.9); Absolute Monocytes 0.6 K/uL (0.1-1.3); Absolute Neutrophil 3.7 K/uL (1.8-8.0); Basophils % 0.8 % (0-1.3); Eosinophils % 9.9 % (0-4.4); Hematocrit 42.2 % (39.6-49.0); Lymphocytes % 22.6 % (15.3-44.8); MCH 30.2 pg (27.0-35.0); MCHC 33.2 g/dL (32.0-36.0); MPV 9.2 fL (7.6-11.3); Monocytes % 8.7 % (3.3-12.3); Nucleated Red Blood Cells % 0.2 % (0-0); Platelets 198 thou/uL (152-406); RBC Red Blood Cell Count 4.64 M/uL (4.33-5.43); Red Cell Distribution Width 15.6 % (12.1-15.2)
[2024-01-17 06:45] LABS: Anion Gap 8.8 mEq/L (5.0-15.0); Magnesium 2.1 mg/dL (1.6-2.4); Phosphorus 3.9 mg/dL (2.5-4.9); Potassium 3.8 mEq/L (3.5-5.1)
[2024-01-17] MEDS: FUROSEMIDE 20 MG/ 2ML VIAL IV SCH (08:17)
[2024-01-17] MEDS: POTASSIUM CL SA 10 MEQ TAB PO ONE (08:17)
--- NOTE | 2024-01-17 12:45 | P.DS ---
Admission Date: 01/15/24 Discharge Date: 01/17/24 Hospital Course: Pt seen and examined. I agree with the note by the BOX TRUCK WASHER. Pt used BIPAP throughout the night. Will resume lasix today. He has been approved for emergency medicaid. Waiting for acceptance. Pt is medically stable for transfer. <Foster Ramirez - Last Filed: 01/17/24 12:49> Admission Date: 01/15/24 Discharge Date: 01/18/24 Comment: Transfer for higher level of care to CHF team Reason for Admission: Respiratory failure 2nd cardiomyopathy Brief History of Present Illness: Mr. Alvares is a 43-year-old male with a past medical history of hypertension who unfortunately contracted COVID and it caused cardiomyopathy. He recently had a cardiac cath which showed normal coronary arteries however his echo shows an ejection fraction of 10 to 15%. He then admitted several times for shortness of breath. He takes Coreg, lisinopril, and Lasix 40 mg daily. For the last 2 days, he has become increasingly short of breath and noted paroxysmal nocturnal dyspnea. He received IV Lasix in the emergency department and was diuresing well; however, on my assessment walking from the restroom to his stretcher (about 20 feet) he was significantly winded. We will admit him for observation to the ICU for monitoring, observation for any arrhythmias, and trial of BiPAP to see if we can make him less dyspneic. He also has HERBERTH with creatinine 1.76 and a decreased GFR at 49. Hospital Course: 01/16/24 Mr. Alvares is significantly less dyspneic with BiPAP 12/27. He wore the BiPAP through the night and his respiratory rate was in the 20s; however, when standing at bedside to void, even with BiPAP, his respiratory rate is in the mid 30s. On assessment this morning, he took BiPAP off to speak with me and had halting speech secondary to dyspnea with respiratory rate 36. He has remained in sinus tach between 97 and 108 over the course of his admission. He has been diuresing well. 700 mL output since 0645 (3 hours) this morning. Pitting edema is decreased, but patient remains quite dyspneic on even minimal exertion. Creatinine and GFR improved to 1.47 and 60 01/17/24 Emergency medicaid approved. Transfer initiated to higher level of care at 0915, awaiting acceptance. Patient aware. Slept with Bipap all night. Currently on a break. Sitting up in bed. Talking to me, he states he feels like there is a lot less fluid in his legs and it feels easier to breathe; while he stated this his HR was 94 and RR was 43-45. <BenYadira Abilio - Last Filed: 01/18/24 09:38> Admission Date: 01/15/24 Discharge Date: 01/18/24 Hospital Course: Patient was seen and examined. Events of the last 24 hours have been noted. Spoke with with JONNA regarding patient's clinical picture after evaluating and examining the patient independently. I performed a substantial part of the MDM d uring this patient's care today. I personally made or approved the documented management plan and acknowledge its risk of complications. I agree with the findings and documentation provided in the JONNA's notes. Patient is clinically improved. CHF is compensated. Patient no longer tachypneic when ambulating short distances. Did speak to [facility] transfer center and arrangements were made for transfer at this time. <Edwin Jamison - Last Filed: 01/18/24 10:14> Disposition: TRANSFER TO [facility] Discharge Condition: FAIR Vital Signs/Physical Exam: Temp Pulse Resp BP Pulse Ox 97.8 F 100 H 25 H 107/81 100 01/17/24 12:00 01/17/24 12:00 01/17/24 12:00 01/17/24 12:00 01/17/24 12:00 Laboratory Data at Discharge: WBC 6.40 thou/uL (4.3-10.9) 01/17/24 05:21 Hgb 14.0 g/dL (13.6-17.9) 01/17/24 05:21 Hct 42.2 % (39.6-49.0) 01/17/24 05:21 Plt Count 198 thou/uL (152-406) 01/17/24 05:21 PT 19.8 SECONDS (9.4-12.5) H 01/15/24 06:21 INR 1.80 01/15/24 06:21 Sodium 139 mEq/L (136-145) 01/17/24 05:21 Potassium 3.8 mEq/L (3.5-5.1) 01/17/24 05:21 BUN 20 mg/dL (7-18) H 01/17/24 05:21 Creatinine 1.57 mg/dL (0.70-1.30) H 01/17/24 05:21 Glucose 90 mg/dL (74-106) 01/17/24 05:21 Phosphorus 3.9 mg/dL (2.5-4.9) 01/17/24 05:21 Magnesium 2.1 mg/dL (1.6-2.4) 01/17/24 05:21 Total Bilirubin 1.1 mg/dL (0.2-1.0) H 01/16/24 06:29 AST < 10 U/L (15-37) L 01/16/24 06:29 ALT 29 U/L (16-61) 01/16/24 06:29 Alkaline Phosphatase 84 U/L (45-117) 01/16/24 06:29 <Foster Ramirez - Last Filed: 01/17/24 12:49> Vital Signs/Physical Exam: Temp Pulse Resp BP Pulse Ox 97.8 F 100 H 25 H 107/81 100 01/17/24 12:00 01/17/24 12:00 01/17/24 12:00 01/17/24 12:00 01/17/24 12:00 General: Alert, Oriented x3, Cooperative HEENT: Atraumatic, Normocephalic Neck: Supple Respiratory: Clear to auscultation bilaterally, Other Cardiovascular: No edema, Normal pulses, Regular rate/rhythm, Other (IV Lasix decreased by half) Capillary refill: <2 Seconds Gastrointestinal: Soft and benign Musculoskeletal: No clubbing, No swelling Integumentary: No rashes, Other (Ashen coloration) Neurological: Normal speech, Normal affect, Other (Speaking causes more tachypnea, minimal activity causes dyspnea) Lymphatics: No axilla or inguinal lymphadenopathy External genitalia: Deferred Rectal: Deferred Laboratory Data at Discharge: WBC 6.40 thou/uL (4.3-10.9) 01/17/24 05:21 Hgb 14.0 g/dL (13.6-17.9) 01/17/24 05:21 Hct 42.2 % (39.6-49.0) 01/17/24 05:21 Plt Count 198 thou/uL (152-406) 01/17/24 05:21 PT 19.8 SECONDS (9.4-12.5) H 01/15/24 06:21 INR 1.80 01/15/24 06:21 Sodium 139 mEq/L (136-145) 01/17/24 05:21 Potassium 3.8 mEq/L (3.5-5.1) 01/17/24 05:21 BUN 20 mg/dL (7-18) H 01/17/24 05:21 Creatinine 1.57 mg/dL (0.70-1.30) H 01/17/24 05:21 Glucose 90 mg/dL (74-106) 01/17/24 05:21 Phosphorus 3.9 mg/dL (2.5-4.9) 01/17/24 05:21 Magnesium 2.1 mg/dL (1.6-2.4) 01/17/24 05:21 Total Bilirubin 1.1 mg/dL (0.2-1.0) H 01/16/24 06:29 AST < 10 U/L (15-37) L 01/16/24 06:29 ALT 29 U/L (16-61) 01/16/24 06:29 Alkaline Phosphatase 84 U/L (45-117) 01/16/24 06:29 <Contreras,Yadira Abilio - Last Filed: 01/18/24 09:38> Vital Signs/Physical Exam: Temp Pulse Resp BP Pulse Ox 97.4 F 98 H 17 108/90 98 01/18/24 08:00 01/18/24 09:00 01/18/24 09:00 01/18/24 09:00 01/18/24 09:00 Laboratory Data at Discharge: WBC 5.90 thou/uL (4.3-10.9) 01/18/24 05:26 Hgb 13.5 g/dL (13.6-17.9) L 01/18/24 05:26 Hct 40.8 % (39.6-49.0) 01/18/24 05:26 Plt Count 202 thou/uL (152-406) 01/18/24 05:26 PT 19.8 SECONDS (9.4-12.5) H 01/15/24 06:21 INR 1.80 01/15/24 06:21 Sodium 139 mEq/L (136-145) 01/18/24 05:26 Potassium Cancelled 01/18/24 06:30 BUN 19 mg/dL (7-18) H 01/18/24 05:26 Creatinine 1.47 mg/dL (0.70-1.30) H 01/18/24 05:26 Glucose 90 mg/dL (74-106) 01/18/24 05:26 Phosphorus 3.9 mg/dL (2.5-4.9) 01/17/24 05:21 Magnesium 2.2 mg/dL (1.6-2.4) 01/18/24 05:26 Total Bilirubin 1.1 mg/dL (0.2-1.0) H 01/16/24 06:29 AST < 10 U/L (15-37) L 01/16/24 06:29 ALT 29 U/L (16-61) 01/16/24 06:29 Alkaline Phosphatase 84 U/L (45-117) 01/16/24 06:29 <Edwin Jamison - Last Filed: 01/18/24 10:14> <Foster Ramirez - Last Filed: 01/17/24 12:49> Diet: Low sodium <Yadira Contreras - Last Filed: 01/18/24 09:38> <Edwin Jamison - Last Filed: 01/18/24 10:14> Home Medications: Albuterol Sulfate [Albuterol Sulfate Hfa] 2 puff .ROUTE PRN 12/25/23 Furosemide [Lasix] 40 mg PO DAILY #30 tab 12/26/23 Magnesium Chloride [Slow-Mag*] 64 mg PO BID #60 tab 12/26/23 Ubidecarenone [Coenzyme Q10*] 200 mg PO DAILY #30 cap 12/26/23 carvediloL [Coreg*] 3.125 mg PO BID 6AM 6PM #60 tab 12/26/23 lisinopriL [Prinivil*] 2.5 mg PO DAILY #30 tab 12/26/23 Trazodone [Desyrel] 50 mg PO BEDTIME PRN PRN 01/14/24 Physician Discharge Instructions: 01/16/24 Mr. Alvares is significantly less dyspneic with BiPAP 12/27. He wore the BiPAP through the night and his respiratory rate was in the 20s; however, when standing at bedside to void, even with BiPAP, his respiratory rate is in the mid 30s. On assessment this morning, he took BiPAP off to speak with me and had halting speech secondary to dyspnea with respiratory rate 36. He has remained in sinus tach between 97 and 108 over the course of his admission. He has been diuresing well. 700 mL output since 06 (3 hours) this morning. Pitting edema is decreased, but patient remains quite dyspneic on even minimal exertion. Creatinine and GFR improved to 1.47 and 60 01/17/24 Emergency medicaid approved. Transfer initiated to higher level of care at 914, awaiting acceptance. Patient aware. Slept with Bipap all night. Currently on a break. Sitting up in bed. Talking to me, he states he feels like there is a lot less fluid in his legs and it feels easier to breathe; while he stated this his HR was 94 and RR was 43-45 01/18/24 Mr. Alvares was much less dependent on BiPap overnight. Resp rate stable when inactive. 5kg wt loss status post lasix. creatinine 1.47. Will switch coreg to entresto today. Dr. Jamison spoke with Dr. Reynolds at [facility] and Mr. Alvares was accepted in transfer. Followup: NONE,NONE [UNKNOWN] -
[2024-01-18 05:17] VITALS: BMI 24.8
[2024-01-18 05:54] LABS: Absolute Eosinophils 0.7 K/uL (0-0.5); Absolute Lymphocytes (CBC) 1.3 K/uL (0.7-4.9); Absolute Monocytes 0.6 K/uL (0.1-1.3); Absolute Neutrophil 3.3 K/uL (1.8-8.0); Basophils % 0.8 % (0-1.3); Eosinophils % 11.6 % (0-4.4); Hematocrit 40.8 % (39.6-49.0); Hemoglobin 13.5 g/dL (13.6-17.9); Lymphocytes % 22.2 % (15.3-44.8); MCH 30.1 pg (27.0-35.0); MCHC 33.2 g/dL (32.0-36.0); MCV 90.7 fL (80-100); MPV 8.7 fL (7.6-11.3); Monocytes % 9.4 % (3.3-12.3); Nucleated Red Blood Cells % 0.1 % (0-0); Platelets 202 thou/uL (152-406); Red Cell Distribution Width 15.9 % (12.1-15.2)
[2024-01-18 06:00] LABS: Anion Gap 7.9 mEq/L (5.0-15.0); Magnesium 2.2 mg/dL (1.6-2.4); Potassium 3.9 mEq/L (3.5-5.1)
[2024-01-18] MEDS: POTASSIUM CL SA 10 MEQ TAB PO ONE ×2 (06:09→06:15)
--- NOTE | 2024-01-18 08:27 | RAD REPORT ---
EXAMINATION: ONE VIEW CHEST XR CLINICAL INDICATION: Male, 43 years old.,CHF, dyspnea TECHNIQUE: Frontal chest projection is submitted. Examination is limited by patient positioning and t echnique. COMPARISON: 01/14/2024 FINDINGS: Identified The lungs are well inflated. Stable mild retrocardiac airspace opacification which may reflect residu al effusion or atelectasis. No pneumothorax or sizable effusion. The heart is normal in size. IMPRESSION: Stable mild retrocardiac airspace opacification as above.
[2024-01-18 13:02] VITALS: BP 123/96; TEMP 97.6; O2SAT 100
[2024-01-18] MEDS ORDERED: ENOXAPARIN 40 MG/0.4 ML SQ SCH (17:00)
== END 2024-01-18 12:50 | disposition short-term general hospital (02) | DRG 314 ==
LOC: ER 11:10 → ERHOLD 16:10 → 3RD-ICU 21:11 → OBSVTOIN 01-15 12:31
PROVIDERS: ADMIT Hospitalist; ATTEND Hospitalist
PROC: 5A09457 Assistance with Respiratory Ventilation, 24-96 Consecutive Hours, Continuous Positive Airway Pressure (ICD-10-PCS; principal; 2024-01-14)
DX: B33.24 Viral cardiomyopathy (principal); J96.00 Acute respiratory failure, unspecified whether with hypoxia or hypercapnia; I50.22 Chronic systolic (congestive) heart failure; N17.9 Acute kidney failure, unspecified; I11.0 Hypertensive heart disease with heart failure; U09.9 Post COVID-19 condition, unspecified; R79.89 Other specified abnormal findings of blood chemistry; Z90.49 Acquired absence of other specified parts of digestive tract; Z79.02 Long term (current) use of antithrombotics/antiplatelets; Z79.899 Other long term (current) drug therapy
CPT/HCPCS: 36415; 71045; 80048; 80053; 83735; 83880; 84100; 84484; 85025; 85610; 93005; 94660; 96374; 99285; G0378; J1940; J2470